=== PATIENT | female | born 1940 | race Caucasian/White ===

== ENCOUNTER 2020-10-12 18:30 | Inpatient (IN) | payer MEDICARE, OTHER ==
[~2020-10-12] VITALS: Ht 157.5 cm; Wt 66.9 kg
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
[2020-10-12 19:26] LABS: HEMATOCRIT 38.3 % (36.0-47.0); HEMOGLOBIN 12.8 g/dL (12.0-15.5); MEAN CORPUSCULAR HEMOGLOBIN 31 pg (25-35); MEAN CORPUSCULAR HGB CONC 33 g/dL (31-37); MEAN CORPUSCULAR VOLUME 94 fL (79-100); PLATELET COUNT 265 x10^3/uL (140-400); RED BLOOD COUNT 4.09 x10^6/uL (3.50-5.40); RED CELL DISTRIBUTION WIDTH 13.3 % (11.5-14.5); WHITE BLOOD COUNT 8.6 x10^3/uL (4.0-11.0)
[2020-10-12 19:26] LABS: BACTERIA,URINE 0 /HPF (0-FEW); BILIRUBIN,URINE NEG (NEG); CLARITY,URINE CLEAR; COLOR,URINE YELLOW; GLUCOSE,URINE NEG (NEG); NITRITE,URINE NEG (NEG); RBC,URINE 0 /HPF (0-2); UROBILINOGEN,URINE 0.2 mg/dL (0.2 mg/dL); WBC,URINE 0 /HPF (0-4)
--- NOTE | 2020-10-12 19:32 | EKG ---
[address] [address] Test Date: 2020-10-12 Test Time: 18:52:23 Pat Name: SANTOS TOBIN Department: Room: Gender: F Customer Support Engineer: DAVID : [id number] Requested By: LUIS LOCK Order Number: [id number] Reading MD: Measurements Intervals [place] Rate: 69 P: 40 [place]: 174 QRS: 43 QRSD: 84 T: 37 QT: 412 QTc: 443 Interpretive Statements SINUS RHYTHM NORMAL ECG RI6.02 No previous ECG available for comparison
[2020-10-12 19:36] LABS: CALCIUM 8.8 mg/dL (8.5-10.1); GFR 53.3; POTASSIUM 4.2 mmol/L (3.5-5.1)
[2020-10-12 19:42] LABS: ALBUMIN 3.7 g/dL (3.4-5.0); ALBUMIN/GLOBULIN RATIO 1.1 (1.0-1.7); TOTAL BILIRUBIN 0.3 mg/dL (0.2-1.0); TOTAL PROTEIN 7.1 g/dL (6.4-8.2)
[2020-10-12] MEDS ORDERED: MAG HYDROX/AL HYDROX/SIMETH 30 ML ORAL.SUSP PO PRN (20:00)
[2020-10-12] MEDS ORDERED: METHYL SALICYLATE/MENTHOL TOPICAL OINTMENT 57GM TUBE. TP PRN (20:00)
[2020-10-12] MEDS ORDERED: ACETAMINOPHEN 325 MG TABLET PO PRN (20:00)
[2020-10-12] MEDS ORDERED: MAGNESIUM HYDROXIDE 2,400 MG/30 ML ORAL.SUSP. PO PRN (20:00)
[2020-10-12] MEDS ORDERED: CHOL10004 PO (21:05)
[2020-10-12] MEDS ORDERED: LOSA50TA86 PO (21:05)
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
[2020-10-12 22:03] LABS: % BANDS 1 % (0-9); % EOS 3 % (0-5); % LYMPHS 29 % (24-48); % MONOS 6 % (0-10); % SEGS 61 % (35-66); PLT ESTIMATE ADEQUATE (ADEQUATE)
--- NOTE | 2020-10-12 22:10 | PDOC ---
Exam Note: Chucho Note: Please also refer to the separate dictated note~for this date of service dictated separately.~Patient seen individually. Discussed the patient with Nursing staff reviewed the chart.~Reviewed interim history and current functioning. Reviewed vital signs,~Labs/ Radiology~and current medications noted below. Continue current treatment with the changes noted in the dictated addendum note Assessment: Vital Signs/I&O: Vital Signs Date Time Temp Pulse Resp B/P (MAP) Pulse Ox O2 Delivery O2 Flow Rate FiO2 10/12/20 18:30 97.8 75 16 163/111 (128) 97 Room Air Labs: Laboratory Tests Test 10/12/20 18:40 10/12/20 19:13 Urine Collection Type Unknown Urine Color Yellow Urine Clarity Clear Urine pH 6.0 Urine Specific [place] 1.015 Urine Protein Neg (NEG-TRACE) Urine Glucose (UA) Neg mg/dL (NEG) Urine Ketones (Stick) Neg mg/dL (NEG) Urine Blood Trace (NEG) Urine Nitrite Neg (NEG) Urine Bilirubin Neg (NEG) Urine Urobilinogen Dipstick 0.2 mg/dL (0.2 mg/dL) Urine Leukocyte Esterase Neg (NEG) Urine RBC 0 /HPF (0-2) Urine WBC 0 /HPF (0-4) Urine Bacteria 0 /HPF (0-FEW) White Blood Count 8.6 x10^3/uL (4.0-11.0) Red Blood Count 4.09 x10^6/uL (3.50-5.40) Hemoglobin 12.8 g/dL (12.0-15.5) Hematocrit 38.3 % (36.0-47.0) Mean Corpuscular Volume 94 fL (79-100) Mean Corpuscular Hemoglobin 31 pg (25-35) Mean Corpuscular Hemoglobin Concent 33 g/dL (31-37) Red Cell Distribution Width 13.3 % (11.5-14.5) Platelet Count 265 x10^3/uL (140-400) Segmented Neutrophils % 61 % (35-66) Band Neutrophils % 1 % (0-9) Lymphocytes % 29 % (24-48) Monocytes % 6 % (0-10) Eosinophils % 3 % (0-5) Platelet Estimate Adequate (ADEQUATE) Sodium Level 138 mmol/L (136-145) Potassium Level 4.2 mmol/L (3.5-5.1) Chloride Level 101 mmol/L (98-107) Carbon Dioxide Level 29 mmol/L (21-32) Anion Gap 8 (6-14) Blood Urea Nitrogen 18 mg/dL (7-20) Creatinine 1.0 mg/dL (0.6-1.0) Estimated GFR (Cockcroft-Gault) 53.3 BUN/Creatinine Ratio 18 (6-20) Glucose Level 143 mg/dL (70-99) H Calcium Level 8.8 mg/dL (8.5-10.1) Magnesium Level 2.1 mg/dL (1.8-2.4) Total Bilirubin 0.3 mg/dL (0.2-1.0) Aspartate Amino Transferase (AST) 36 U/L (15-37) Alanine Aminotransferase (ALT) 55 U/L (14-59) Alkaline Phosphatase 89 U/L (46-116) Troponin I Quantitative < 0.017 ng/mL (0-0.055) Total Protein 7.1 g/dL (6.4-8.2) Albumin 3.7 g/dL (3.4-5.0) Albumin/Globulin Ratio 1.1 (1.0-1.7) Current Medications: Meds: Laboratory Tests Test 10/12/20 18:40 10/12/20 19:13 Urine Collection Type Unknown Urine Color Yellow Urine Clarity Clear Urine pH 6.0 Urine Specific [place] 1.015 Urine Protein Neg Urine Glucose (UA) Neg mg/dL Urine Ketones (Stick) Neg mg/dL Urine Blood Trace Urine Nitrite Neg Urine Bilirubin Neg Urine Urobilinogen Dipstick 0.2 mg/dL Urine Leukocyte Esterase Neg Urine RBC 0 /HPF Urine WBC 0 /HPF Urine Bacteria 0 /HPF White Blood Count 8.6 x10^3/uL Red Blood Count 4.09 x10^6/uL Hemoglobin 12.8 g/dL Hematocrit 38.3 % Mean Corpuscular Volume 94 fL Mean Corpuscular Hemoglobin 31 pg Mean Corpuscular Hemoglobin Concent 33 g/dL Red Cell Distribution Width 13.3 % Platelet Count 265 x10^3/uL Segmented Neutrophils % 61 % Band Neutrophils % 1 % Lymphocytes % 29 % Monocytes % 6 % Eosinophils % 3 % Platelet Estimate Adequate Sodium Level 138 mmol/L Potassium Level 4.2 mmol/L Chloride Level 101 mmol/L Carbon Dioxide Level 29 mmol/L Anion Gap 8 Blood Urea Nitrogen 18 mg/dL Creatinine 1.0 mg/dL Estimated GFR (Cockcroft-Gault) 53.3 BUN/Creatinine Ratio 18 Glucose Level 143 mg/dL Calcium Level 8.8 mg/dL Magnesium Level 2.1 mg/dL Total Bilirubin 0.3 mg/dL Aspartate Amino Transf (AST/SGOT) 36 U/L Alanine Aminotransferase (ALT/SGPT) 55 U/L Alkaline Phosphatase 89 U/L Troponin I Quantitative < 0.017 ng/mL Total Protein 7.1 g/dL Albumin 3.7 g/dL Albumin/Globulin Ratio 1.1 Current Medications Medications (Trade) Dose Ordered Sig/Wali Route PRN Reason Start Time Stop Time Status Last Admin Dose Admin Acetaminophen (Tylenol) 650 mg PRN Q6HRS PRN PO MILD PAIN / TEMP > 100.3'F 10/12/20 20:00 Multi-Ingredient Ointment (Analgesic Lillie) 1 cynthia PRN QID PRN TP MUSCLE PAIN 10/12/20 20:00 Al Hydroxide/Mg Hydroxide (Mylanta Plus Xs) 15 ml PRN AFTMEALHC PRN PO DYSPEPSIA 10/12/20 20:00 Magnesium Hydroxide (Milk Of Magnesia) 2,400 mg PRN QHS PRN PO CONSTIPATION 10/12/20 20:00 Vitamin D (Vitamin D3) 3,000 unit HS PO 10/13/20 21:15 Losartan Potassium (Cozaar) 50 mg HS PO 10/13/20 21:15 I have reviewed the current psychotropics carefully including drug interactions. Risk benefit ratio favors no change other than as noted in my dictated progress note. MICHELLE MG MD October 12, 2020 22:10
[2020-10-12 23:37] VITALS: BP 188/76
[2020-10-13 06:19] VITALS: BP 150/77
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
[2020-10-13 13:10] LABS: THYROXINE 6.1 ug/dL (4.5-12.0)
[2020-10-13 15:51] VITALS: BP 183/90
--- NOTE | 2020-10-13 17:25 | NUR ---
Pt did not have any medications to be given on day shift, she is pleasant and social no behaviors at this time. Patient cooperative when being asked to do something. 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 Patient has made two friends here which she knows from her facility; Maura and Nano and they are getting along well eating meals at the same table in the dining room and sitting in the day room together. Patient vitals wnl of baseline and stable, patient alert to self and others that she recognizes, will continue to monitor patient.
[2020-10-13 17:37] VITALS: BP 160/87
[2020-10-13] MEDS: CHOLECALCIFEROL (VITAMIN D3) 1,000 UNIT TABLET PO SCH (19:56)
[2020-10-13] MEDS: LOSARTAN 50 MG TABLET. PO SCH (19:56)
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
--- NOTE | 2020-10-13 22:00 | PDOC ---
Exam Note: Chucho Note: Please also refer to the separate dictated note~for this date of service dictated separately.~Patient seen individually. Discussed the patient with Nursing staff reviewed the chart.~Reviewed interim history and current functioning. Reviewed vital signs,~Labs/ Radiology~and current medications noted below. Continue current treatment with the changes noted in the dictated addendum note Assessment: Vital Signs/I&O: Vital Signs Date Time Temp Pulse Resp B/P (MAP) Pulse Ox O2 Delivery O2 Flow Rate FiO2 10/13/20 19:56 91 160/87 10/13/20 15:51 97.9 18 100 10/13/20 06:19 Room Air Labs: Laboratory Tests Test 10/13/20 09:50 D-Dimer (Kaylyn) 0.48 mg/L (0.00-0.50) Iron Level 86 ug/dL (50-170) Total Iron Binding Capacity 304 ug/dL (250-450) Iron Saturation 28 % (15-34) Current Medications: Meds: Laboratory Tests Test 10/13/20 09:50 D-Dimer (Kaylyn) 0.48 mg/L Iron Level 86 ug/dL Total Iron Binding Capacity 304 ug/dL Iron Saturation 28 % Current Medications Medications (Trade) Dose Ordered Sig/Wali Route PRN Reason Start Time Stop Time Status Last Admin Dose Admin Acetaminophen (Tylenol) 650 mg PRN Q6HRS PRN PO MILD PAIN / TEMP > 100.3'F 10/12/20 20:00 Multi-Ingredient Ointment (Analgesic [place]) 1 cynthia PRN QID PRN TP MUSCLE PAIN 10/12/20 20:00 Al Hydroxide/Mg Hydroxide (Mylanta Plus Xs) 15 ml PRN AFTMEALHC PRN PO DYSPEPSIA 10/12/20 20:00 Magnesium Hydroxide (Milk Of Magnesia) 2,400 mg PRN QHS PRN PO CONSTIPATION 10/12/20 20:00 Vitamin D (Vitamin D3) 3,000 unit HS PO 10/13/20 21:15 10/13/20 19:56 Losartan Potassium (Cozaar) 50 mg HS PO 10/13/20 21:15 10/13/20 19:56 Current Medications Medications (Trade) Dose Ordered Sig/Wali Route PRN Reason Start Time Stop Time Status Last Admin Dose Admin Vitamin D (Vitamin D3) 3,000 unit HS PO 10/13/20 21:15 10/13/20 19:56 Losartan Potassium (Cozaar) 50 mg HS PO 10/13/20 21:15 10/13/20 19:56 I have reviewed the current psychotropics carefully including drug interactions. Risk benefit ratio favors no change other than as noted in my dictated progress note. MICHELLE MG MD October 13, 2020 22:00
--- NOTE | 2020-10-13 22:36 | NUR ---
Pt sitting in the day room, socializing with peers when approached. Pt calm, pleasantly confused, and interactive. Pt cooperative with assessment and compliant with medications administered whole. No agitation or aggression noted thus far this shift.
[2020-10-13 23:09] LABS: HEMOGLOBIN A1C 5.3 % (4.8-5.6)
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
[2020-10-14 06:11] VITALS: BP 157/81
--- NOTE | 2020-10-14 10:22 | PDOC ---
Exam Note: Chucho Note: This note is a late entry for 10/13/2020 covers elements not covered in my initial note. Subjective: The patient was reviewed in the morning of 10/13/2020 for a treatment team meeting with Amada Chatterjee, Gwendolyn Gray and Ira (social media analyst), Landy, activity therapy and Chris MOTT, discussed and reviewed the chart. The patient slept 8 hours previous night. Patients daughter Shameka who lives in [place] attended the treatment team meeting. We had a lengthy discussion about the patients diagnosis and fact that she was always very social and the episode of aggression at the longterm seems out of character for her. 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 Rest information noted in my psychiatric evaluation/history. Assessment: Vital Signs/I&O: Vital Signs Date Time Temp Pulse Resp B/P (MAP) Pulse Ox O2 Delivery O2 Flow Rate FiO2 10/14/20 06:11 98.6 71 18 157/81 (106) 98 10/13/20 06:19 Room Air I & O 10/13/20 10/13/20 10/14/20 15:00 23:00 07:00 Intake Total 420 ml 600 ml Balance 420 ml 600 ml Current Medications: Meds: Current Medications Medications (Trade) Dose Ordered Sig/Wali Route PRN Reason Start Time Stop Time Status Last Admin Dose Admin Acetaminophen (Tylenol) 650 mg PRN Q6HRS PRN PO MILD PAIN / TEMP > 100.3'F 10/12/20 20:00 Multi-Ingredient Ointment (Analgesic [place]) 1 cynthia PRN QID PRN TP MUSCLE PAIN 10/12/20 20:00 Al Hydroxide/Mg Hydroxide (Mylanta Plus Xs) 15 ml PRN AFTMEALHC PRN PO DYSPEPSIA 10/12/20 20:00 Magnesium Hydroxide (Milk Of Magnesia) 2,400 mg PRN QHS PRN PO CONSTIPATION 10/12/20 20:00 Vitamin D (Vitamin D3) 3,000 unit HS PO 10/13/20 21:15 10/13/20 19:56 Losartan Potassium (Cozaar) 50 mg HS PO 10/13/20 21:15 10/13/20 19:56 Current Medications Medications (Trade) Dose Ordered Sig/Wali Route PRN Reason Start Time Stop Time Status Last Admin Dose Admin Vitamin D (Vitamin D3) 3,000 unit HS PO 10/13/20 21:15 10/13/20 19:56 Losartan Potassium (Cozaar) 50 mg HS PO 10/13/20 21:15 10/13/20 19:56 I have reviewed the current psychotropics carefully including drug interactions. Risk benefit ratio favors no change other than as noted in my dictated progress note. Diagnosis: Problems: (1) Major neurocognitive disorder (2) Dementia in Alzheimer's disease with delusions (3) Dementia in Alzheimer's disease with depression (4) Dementia of the Alzheimer's type with early onset with behavioral disturbance (5) Dementia, vascular, with delusions (6) Dementia, vascular, with depression (7) Anxiety disorder, unspecified (8) Impulse control disorder, unspecified MICHELLE MG MD October 14, 2020 10:22
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
--- NOTE | 2020-10-14 11:15 | NUR ---
ACTIVITY THERAPY ASSESSMENT completed based on notes, observation and interview. Pt can ambulate independently and interacts with with others. Pt was sitting in the day room chatting with peers. Pt was compliant and willing to answer questions. Pt was unable to answer assessment questions and often answered by reading the meal card she had in her hand from lunch. Pt was was able to say the month and day of her birthday but not the year. Pt believes her mother and father are still alive and that she only has one daughter. Pt has two daughters, one that lives about an hour away and another lives out of state. AT explained groups that are offered on [facility] and pt said "that's nice." Pt has attended a few Activity Therapy groups and engages well. Per notes pt has interacted well with others and is compliant with medications. Initial goal aimed to support socialization and engagement. Pt will participate in at all Activity Therapy sessions offered. Addendum: 10/20/20 at 1113 by MARY TRAN ACT Goal repeated 10/20
[2020-10-14 15:59] VITALS: BP 159/83
--- NOTE | 2020-10-14 16:03 | NUR ---
Nsg note; pt has been pleasantly confused today. she is calm and med compliant and stayed in the dayroom between meals talking with other pts.
[2020-10-14] MEDS: CHOLECALCIFEROL (VITAMIN D3) 1,000 UNIT TABLET PO SCH (20:27)
[2020-10-14] MEDS: LOSARTAN 50 MG TABLET. PO SCH (20:27)
--- NOTE | 2020-10-14 21:51 | PDOC ---
Exam Note: Chucho Note: Please also refer to the separate dictated note~for this date of service dictated separately.~Patient seen individually. Discussed the patient with Nursing staff reviewed the chart.~Reviewed interim history and current functioning. Reviewed vital signs,~Labs/ Radiology~and current medications noted below. Continue current treatment with the changes noted in the dictated addendum note Assessment: Vital Signs/I&O: Vital Signs Date Time Temp Pulse Resp B/P (MAP) Pulse Ox O2 Delivery O2 Flow Rate FiO2 10/14/20 20:27 76 159/83 10/14/20 15:59 98.2 20 99 Room Air I & O 10/13/20 10/13/20 10/14/20 15:00 23:00 07:00 Intake Total 420 ml 600 ml Balance 420 ml 600 ml Current Medications: Meds: Current Medications Medications (Trade) Dose Ordered Sig/Wali Route PRN Reason Start Time Stop Time Status Last Admin Dose Admin Acetaminophen (Tylenol) 650 mg PRN Q6HRS PRN PO MILD PAIN / TEMP > 100.3'F 10/12/20 20:00 Multi-Ingredient Ointment (Analgesic [place]) 1 cynthia PRN QID PRN TP MUSCLE PAIN 10/12/20 20:00 Al Hydroxide/Mg Hydroxide (Mylanta Plus Xs) 15 ml PRN AFTMEALHC PRN PO DYSPEPSIA 10/12/20 20:00 Magnesium Hydroxide (Milk Of Magnesia) 2,400 mg PRN QHS PRN PO CONSTIPATION 10/12/20 20:00 Vitamin D (Vitamin D3) 3,000 unit HS PO 10/13/20 21:15 10/14/20 20:27 Losartan Potassium (Cozaar) 50 mg HS PO 10/13/20 21:15 10/14/20 20:27 I have reviewed the current psychotropics carefully including drug interactions. Risk benefit ratio favors no change other than as noted in my dictated progress note. Diagnosis: Problems: (1) Impulse control disorder, unspecified (2) Anxiety disorder, unspecified (3) Dementia, vascular, with depression (4) Dementia, vascular, with delusions (5) Dementia in Alzheimer's disease with depression (6) Dementia in Alzheimer's disease with delusions (7) Dementia of the Alzheimer's type with early onset with behavioral disturbance (8) Major neurocognitive disorder MICHELLE MG MD October 14, 2020 21:51
--- NOTE | 2020-10-15 00:46 | NUR ---
Last evening pt sat in the day room watching TV and visiting with peers. She is pleasantly confused and was only able to give name and . Meds were taken whole and she has had no behaviors tonight.
[2020-10-15 06:10] VITALS: BP 154/80
[2020-10-15 15:49] VITALS: BP 153/94
--- NOTE | 2020-10-15 18:25 | NUR ---
Patient coopertive with cares and staff very social with other patients, disorganized and confused. Patient ambulates around the unit independently no complaints of pain or discomfort vitals wnl of baseline and stable. Patient has good appetite she eats all meals at the dining room table, no behaviors to report alert to self and others she recognizes, will continue to monitor patient.
[2020-10-15] MEDS: CHOLECALCIFEROL (VITAMIN D3) 1,000 UNIT TABLET PO SCH (20:16)
[2020-10-15] MEDS: LOSARTAN 50 MG TABLET. PO SCH (20:16)
--- NOTE | 2020-10-15 22:17 | PDOC ---
Exam Note: Chucho Note: Please also refer to the separate dictated note~for this date of service dictated separately.~Patient seen individually. Discussed the patient with Nursing staff reviewed the chart.~Reviewed interim history and current functioning. Reviewed vital signs,~Labs/ Radiology~and current medications noted below. Continue current treatment with the changes noted in the dictated addendum note Assessment: Vital Signs/I&O: Vital Signs Date Time Temp Pulse Resp B/P (MAP) Pulse Ox O2 Delivery O2 Flow Rate FiO2 10/15/20 20:16 92 153/94 10/15/20 15:49 98.2 18 97 10/15/20 06:10 Room Air I & O 10/14/20 10/14/20 10/15/20 15:00 23:00 07:00 Intake Total 480 ml 360 ml Balance 480 ml 360 ml Current Medications: Meds: Current Medications Medications (Trade) Dose Ordered Sig/Wali Route PRN Reason Start Time Stop Time Status Last Admin Dose Admin Acetaminophen (Tylenol) 650 mg PRN Q6HRS PRN PO MILD PAIN / TEMP > 100.3'F 10/12/20 20:00 Multi-Ingredient Ointment (Analgesic [place]) 1 cynthia PRN QID PRN TP MUSCLE PAIN 10/12/20 20:00 Al Hydroxide/Mg Hydroxide (Mylanta Plus Xs) 15 ml PRN AFTMEALHC PRN PO DYSPEPSIA 10/12/20 20:00 Magnesium Hydroxide (Milk Of Magnesia) 2,400 mg PRN QHS PRN PO CONSTIPATION 10/12/20 20:00 Vitamin D (Vitamin D3) 3,000 unit HS PO 10/13/20 21:15 10/15/20 20:16 Losartan Potassium (Cozaar) 50 mg HS PO 10/13/20 21:15 10/15/20 20:16 I have reviewed the current psychotropics carefully including drug interactions. Risk benefit ratio favors no change other than as noted in my dictated progress note. Diagnosis: Problems: (1) Impulse control disorder, unspecified (2) Anxiety disorder, unspecified (3) Dementia, vascular, with depression (4) Dementia, vascular, with delusions (5) Dementia in Alzheimer's disease with depression (6) Dementia in Alzheimer's disease with delusions (7) Dementia of the Alzheimer's type with early onset with behavioral disturbance (8) Major neurocognitive disorder MICHELLE MG MD October 15, 2020 22:17
[2020-10-16 05:33] VITALS: BP 164/84
--- NOTE | 2020-10-16 08:59 | PDOC ---
Exam Note: Chucho Note: This note is a late entry for 10/14/2020 covers elements not covered in my initial note. Subjective: The patient was seen individually in the evening of 10/14/2020 with Isabel MOTT, discussed and reviewed the chart. She slept 6-1/4 hours previous night. The patient remains kenneth, confused, but not aggressive, agitated, quite verbal, animated when I met with her but disorganized. Review of Systems: She is hard of hearing. No CV, , pulmonary, eye system symptoms on review. Reliability poor. Mental Status Exam: The patient is oriented to herself. Insight and judgment, recent and remote memory, attention and concentration fund of knowledge is poor consistent with her diagnoses. Laboratory Data: Reviewed. Impression: Major neurocognitive disorder Alzheimer vascular with delusion, depression, behavioral disturbance. Anxiety disorder unspecified. Impulse control disorder unspecified. Plan: Continue current psychotropics from initial note. Assessment: Vital Signs/I&O: Vital Signs Date Time Temp Pulse Resp B/P (MAP) Pulse Ox O2 Delivery O2 Flow Rate FiO2 10/16/20 05:33 98.0 82 16 164/84 (110) 98 10/15/20 06:10 Room Air I & O 10/15/20 10/15/20 10/16/20 15:00 23:00 07:00 Intake Total 540 ml 360 ml Balance 540 ml 360 ml Current Medications: Meds: Current Medications Medications (Trade) Dose Ordered Sig/Wali Route PRN Reason Start Time Stop Time Status Last Admin Dose Admin Acetaminophen (Tylenol) 650 mg PRN Q6HRS PRN PO MILD PAIN / TEMP > 100.3'F 10/12/20 20:00 Multi-Ingredient Ointment (Analgesic [place]) 1 cynthia PRN QID PRN TP MUSCLE PAIN 10/12/20 20:00 Al Hydroxide/Mg Hydroxide (Mylanta Plus Xs) 15 ml PRN AFTMEALHC PRN PO DYSPEPSIA 10/12/20 20:00 Magnesium Hydroxide (Milk Of Magnesia) 2,400 mg PRN QHS PRN PO CONSTIPATION 10/12/20 20:00 Vitamin D (Vitamin D3) 3,000 unit HS PO 10/13/20 21:15 10/15/20 20:16 Losartan Potassium (Cozaar) 50 mg HS PO 10/13/20 21:15 10/15/20 20:16 I have reviewed the current psychotropics carefully including drug interactions. Risk benefit ratio favors no change other than as noted in my dictated progress note. Diagnosis: Problems: (1) Impulse control disorder, unspecified (2) Anxiety disorder, unspecified (3) Dementia, vascular, with depression (4) Dementia, vascular, with delusions (5) Dementia in Alzheimer's disease with depression (6) Dementia in Alzheimer's disease with delusions (7) Dementia of the Alzheimer's type with early onset with behavioral disturbance (8) Major neurocognitive disorder MICHELLE MG MD October 16, 2020 08:59
--- NOTE | 2020-10-16 09:21 | PDOC ---
Exam Note: Chucho Note: This note is a late entry for covers elements not covered in my initial note. Subjective: The patient was seen individually in the evening of 10/15/2020 with Chris MOTT, discussed and reviewed the chart. She slept 6-1/4 hours previous night. She is oriented to herself, pleasant, verbal, following me around the hallways as I met with her. Review of Systems: She is hard of hearing. No CV, , pulmonary, eye system symptoms on review. Reliability poor. Mental Status Exam: The patient is oriented to herself. Insight and judgment, recent and remote memory, attention and concentration fund of knowledge is poor consistent with her diagnoses. Laboratory Data: Reviewed. Impression: Major neurocognitive disorder Alzheimer vascular with delusion, depression, behavioral disturbance. Anxiety disorder unspecified. Impulse control disorder unspecified. Plan: Continue current psychotropics from initial note. Assessment: Vital Signs/I&O: Vital Signs Date Time Temp Pulse Resp B/P (MAP) Pulse Ox O2 Delivery O2 Flow Rate FiO2 10/16/20 05:33 98.0 82 16 164/84 (110) 98 10/15/20 06:10 Room Air I & O 10/15/20 10/15/20 10/16/20 15:00 23:00 07:00 Intake Total 540 ml 360 ml Balance 540 ml 360 ml Current Medications: Meds: Current Medications Medications (Trade) Dose Ordered Sig/Wali Route PRN Reason Start Time Stop Time Status Last Admin Dose Admin Acetaminophen (Tylenol) 650 mg PRN Q6HRS PRN PO MILD PAIN / TEMP > 100.3'F 10/12/20 20:00 Multi-Ingredient Ointment (Analgesic [place]) 1 cynthia PRN QID PRN TP MUSCLE PAIN 10/12/20 20:00 Al Hydroxide/Mg Hydroxide (Mylanta Plus Xs) 15 ml PRN AFTMEALHC PRN PO DYSPEPSIA 10/12/20 20:00 Magnesium Hydroxide (Milk Of Magnesia) 2,400 mg PRN QHS PRN PO CONSTIPATION 10/12/20 20:00 Vitamin D (Vitamin D3) 3,000 unit HS PO 10/13/20 21:15 10/15/20 20:16 Losartan Potassium (Cozaar) 50 mg HS PO 10/13/20 21:15 10/15/20 20:16 I have reviewed the current psychotropics carefully including drug interactions. Risk benefit ratio favors no change other than as noted in my dictated progress note. Diagnosis: Problems: (1) Impulse control disorder, unspecified (2) Anxiety disorder, unspecified (3) Dementia, vascular, with depression (4) Dementia, vascular, with delusions (5) Dementia in Alzheimer's disease with depression (6) Dementia in Alzheimer's disease with delusions (7) Dementia of the Alzheimer's type with early onset with behavioral disturbanc e (8) Major neurocognitive disorder MICHELLE MG MD October 16, 2020 09:21
[2020-10-16 15:43] VITALS: BP 139/84
--- NOTE | 2020-10-16 16:52 | NUR ---
Pt had no behaviors today very pleasant compliant with cares and cooperative with staff. Patient has good appetite in the dining room for all meals sitting at the table with prior friends from her facility. Patient alert to self ambulates ad emir independently. Patient daughter called for an update password was given and update provided. Patient daughter stated she loves music and she loves to dance. Very disorganized and confused. No complaints of pain or discomfort. Will continue to monitor patient.
[2020-10-16] MEDS: CHOLECALCIFEROL (VITAMIN D3) 1,000 UNIT TABLET PO SCH (20:08)
[2020-10-16] MEDS: LOSARTAN 50 MG TABLET. PO SCH (20:09)
--- NOTE | 2020-10-16 22:13 | PDOC ---
Exam Note: Chucho Note: Please also refer to the separate dictated note~for this date of service dictated separately.~Patient seen individually. Discussed the patient with Nursing staff reviewed the chart.~Reviewed interim history and current functioning. Reviewed vital signs,~Labs/ Radiology~and current medications noted below. Continue current treatment with the changes noted in the dictated addendum note Assessment: Vital Signs/I&O: Vital Signs Date Time Temp Pulse Resp B/P (MAP) Pulse Ox O2 Delivery O2 Flow Rate FiO2 10/16/20 20:09 85 139/84 10/16/20 15:43 98.0 18 97 10/15/20 06:10 Room Air I & O 10/15/20 10/15/20 10/16/20 15:00 23:00 07:00 Intake Total 540 ml 360 ml Balance 540 ml 360 ml Current Medications: Meds: Current Medications Medications (Trade) Dose Ordered Sig/Wali Route PRN Reason Start Time Stop Time Status Last Admin Dose Admin Acetaminophen (Tylenol) 650 mg PRN Q6HRS PRN PO MILD PAIN / TEMP > 100.3'F 10/12/20 20:00 Multi-Ingredient Ointment (Analgesic [place]) 1 cynthia PRN QID PRN TP MUSCLE PAIN 10/12/20 20:00 Al Hydroxide/Mg Hydroxide (Mylanta Plus Xs) 15 ml PRN AFTMEALHC PRN PO DYSPEPSIA 10/12/20 20:00 Magnesium Hydroxide (Milk Of Magnesia) 2,400 mg PRN QHS PRN PO CONSTIPATION 10/12/20 20:00 Vitamin D (Vitamin D3) 3,000 unit HS PO 10/13/20 21:15 10/16/20 20:08 Losartan Potassium (Cozaar) 50 mg HS PO 10/13/20 21:15 10/16/20 20:09 I have reviewed the current psychotropics carefully including drug interactions. Risk benefit ratio favors no change other than as noted in my dictated progress note. Diagnosis: Problems: (1) Impulse control disorder, unspecified (2) Anxiety disorder, unspecified (3) Dementia, vascular, with depression (4) Dementia, vascular, with delusions (5) Dementia in Alzheimer's disease with depression (6) Dementia in Alzheimer's disease with delusions (7) Dementia of the Alzheimer's type with early onset with behavioral disturbance (8) Major neurocognitive disorder MICHELLE MG MD October 16, 2020 22:13
[2020-10-17 06:24] VITALS: BP 159/81
--- NOTE | 2020-10-17 07:14 | PDOC ---
Exam Note: Chucho Note: This note is a late entry for covers elements not covered in my initial note. Subjective: The patient was seen individually in the evening of 10/16/2020 with Chris MOTT, discussed and reviewed the chart. She slept 6-1/2 hours previous night. She remains confused. Review of Systems: No CV, , pulmonary, eye system symptoms on review. Mental Status Exam: The patient is oriented to herself. Insight and judgment, recent and remote memory, attention and concentration fund of knowledge is poor consistent with her diagnoses. Laboratory Data: Reviewed. Impression: Major neurocognitive disorder Alzheimer vascular with delusion, depression, behavioral disturbance. Anxiety disorder unspecified. Impulse control disorder unspecified. Plan: Continue current psychotropics from initial note. The patients family prefers no psychotropics. At this stage will not find a need to use any psychotropic medication. We will continue to assess if this is needed. Assessment: Vital Signs/I&O: Vital Signs Date Time Temp Pulse Resp B/P (MAP) Pulse Ox O2 Delivery O2 Flow Rate FiO2 10/17/20 06:24 97.7 84 16 159/81 (107) 98 10/15/20 06:10 Room Air I & O 10/16/20 10/16/20 10/17/20 15:00 23:00 07:00 Intake Total 600 ml 480 ml Balance 600 ml 480 ml Current Medications: Meds: Current Medications Medications (Trade) Dose Ordered Sig/Wali Route PRN Reason Start Time Stop Time Status Last Admin Dose Admin Acetaminophen (Tylenol) 650 mg PRN Q6HRS PRN PO MILD PAIN / TEMP > 100.3'F 10/12/20 20:00 Multi-Ingredient Ointment (Analgesic [place]) 1 cynthia PRN QID PRN TP MUSCLE PAIN 10/12/20 20:00 Al Hydroxide/Mg Hydroxide (Mylanta Plus Xs) 15 ml PRN AFTMEALHC PRN PO DYSPEPSIA 10/12/20 20:00 Magnesium Hydroxide (Milk Of Magnesia) 2,400 mg PRN QHS PRN PO CONSTIPATION 10/12/20 20:00 Vitamin D (Vitamin D3) 3,000 unit HS PO 10/13/20 21:15 10/16/20 20:08 Losartan Potassium (Cozaar) 50 mg HS PO 10/13/20 21:15 10/16/20 20:09 I have reviewed the current psychotropics carefully including drug interactions. Risk benefit ratio favors no change other than as noted in my dictated progress note. Diagnosis: Problems: (1) Impulse control disorder, unspecified (2) Anxiety disorder, unspecified (3) Dementia, vascular, with depression (4) Dementia, vascular, with delusions (5) Dementia in Alzheimer's disease with depression (6) Dementia in Alzheimer's disease with delusions (7) Dementia of the Alzheimer's type with early onset with behavioral disturbance (8) Major neurocognitive disorder MICHELLE MG MD October 17, 2020 07:13
[2020-10-17 16:06] VITALS: BP 158/90
--- NOTE | 2020-10-17 16:16 | NUR ---
NSG NOTE; AFTER KISSING A MALE PEER ON THE FOREHEAD, THE PT TOOK HIS HAND AND ATTEMPTED TO LEAD HIM OUT OF THE DAYROOM. WHEN STAFF INTERVENED, PT BECAME VERY ANGRY, STATING THAT "HE IS MY MAN AND I CAN TAKE HIM OUT OF HERE IF I WANT TO." SHE TOLD SEVERAL STAFF MEMBERS TO "FUCK OFF" AND THAT SHE CAN DO WHAT SHE WANTS WITH HER MAN. WE WERE FINALLY ABLE TO GET HER TO LET GO OF HIS HAND AND GO SIT WITH SOME OTHER FEMALE PEERS AFTER WHICH SHE TOLD US "TO GO TO HELL." SHE CONTINUED TO BE ANGRY AND GLARED AT STAFF FROM ACROSS THE DAYROOM ALL THE WHILE COMPLAINING TO HER FEMALE PEERS THAT "THOSE THREE BITCHES" WERE TRYING TO STEAL HER MAN.
--- NOTE | 2020-10-17 17:40 | NUR ---
NSG NOTE; SANTOS CONT TO BE ANGRY WITH STAFF, GLARING AT US FROM ACROSS THE DINING ROOM. SHE HAS NOT APPROACHED THE MALE PT AGAIN
--- NOTE | 2020-10-17 18:45 | NUR ---
NSG NOTE; PHONE CONTACT WITH DAUGHTER KIERSTEN CAN ROSA AT [address] MG'S REQUEST. KIERSTEN INFORMED OF 'S REQUEST TO START ZOLOFT AND EDUCATED ABOUT POSSIBLE SIDE EFFECTS. SHE AGREED TO ALLOW THE PATIENT TO BE STARTED ON THIS MED
[2020-10-17] MEDS: LOSARTAN 50 MG TABLET. PO SCH (20:21)
[2020-10-17] MEDS: CHOLECALCIFEROL (VITAMIN D3) 1,000 UNIT TABLET PO SCH (20:21)
--- NOTE | 2020-10-17 22:15 | PDOC ---
Exam Note: Chucho Note: Please also refer to the separate dictated note~for this date of service dictated separately.~Patient seen individually. Discussed the patient with Nursing staff reviewed the chart.~Reviewed interim history and current functioning. Reviewed vital signs,~Labs/ Radiology~and current medications noted below. Continue current treatment with the changes noted in the dictated addendum note Assessment: Vital Signs/I&O: Vital Signs Date Time Temp Pulse Resp B/P (MAP) Pulse Ox O2 Delivery O2 Flow Rate FiO2 10/17/20 20: 80 158/90 10/17/20 16:06 97.6 20 97 10/15/20 06:10 Room Air I & O 10/16/20 10/16/20 10/17/20 15:00 23:00 07:00 Intake Total 600 ml 480 ml Balance 600 ml 480 ml Current Medications: Meds: Current Medications Medications (Trade) Dose Ordered Sig/Wali Route PRN Reason Start Time Stop Time Status Last Admin Dose Admin Acetaminophen (Tylenol) 650 mg PRN Q6HRS PRN PO MILD PAIN / TEMP > 100.3'F 10/12/20 20:00 Multi-Ingredient Ointment (Analgesic [place]) 1 cynthia PRN QID PRN TP MUSCLE PAIN 10/12/20 20:00 Al Hydroxide/Mg Hydroxide (Mylanta Plus Xs) 15 ml PRN AFTMEALHC PRN PO DYSPEPSIA 10/12/20 20:00 Magnesium Hydroxide (Milk Of Magnesia) 2,400 mg PRN QHS PRN PO CONSTIPATION 10/12/20 20:00 Vitamin D (Vitamin D3) 3,000 unit HS PO 10/13/20 21:15 10/17/20 20:21 Losartan Potassium (Cozaar) 50 mg HS PO 10/13/20 21:15 10/17/20 20:21 Sertraline HCl (Zoloft) 25 mg DAILY PO 10/18/20 09:00 10/21/20 08:59 Sertraline HCl (Zoloft) 50 mg DAILY PO 10/21/20 09:00 I have reviewed the current psychotropics carefully including drug interactions. Risk benefit ratio favors no change other than as noted in my dictated progress note. Diagnosis: Problems: (1) Impulse control disorder, unspecified (2) Anxiety disorder, unspecified (3) Dementia, vascular, with depression (4) Dementia, vascular, with delusions (5) Dementia in Alzheimer's disease with depression (6) Dementia in Alzheimer's disease with delusions (7) Dementia of the Alzheimer's type with early onset with behavioral disturb ance (8) Major neurocognitive disorder MICHELLE MG MD October 17, 2020 22:15
--- NOTE | 2020-10-17 23:41 | NUR ---
Pt walking in hallway when approached. Pt calm, confused, disorganized, and delusional. Pt following male peer down the hallway, she believes that he is her s/o. Pt somewhat resistive with staff attempts to re-direct. Pt cooperative with assessment and compliant with medications administered whole.
[2020-10-18 06:16] VITALS: BP 140/82
[2020-10-18] MEDS: SERTRALINE 25 MG TABLET. PO SCH (08:33)
[2020-10-18] MEDS ORDERED: LOSARTAN 50 MG TABLET. PO ONE (15:30)
[2020-10-18 15:56] VITALS: BP 191/74
--- NOTE | 2020-10-18 17:49 | NUR ---
NSG NOTE; SHIFT SUMMARY Sunita has been less persistent with her males peers today, preferring talking and playing cards with female peers. she is confused but can follow simple directions. she has been med compliant and calm. she is social with peers, talking and laughing at times.
[2020-10-18] MEDS: CHOLECALCIFEROL (VITAMIN D3) 1,000 UNIT TABLET PO SCH (20:45)
[2020-10-18] MEDS: LOSARTAN 50 MG TABLET. PO SCH (20:45)
--- NOTE | 2020-10-18 21:55 | PDOC ---
Exam Note: Chucho Note: Please also refer to the separate dictated note~for this date of service dictated separately.~Patient seen individually. Discussed the patient with Nursing staff reviewed the chart.~Reviewed interim history and current functioning. Reviewed vital signs,~Labs/ Radiology~and current medications noted below. Continue current treatment with the changes noted in the dictated addendum note Assessment: Vital Signs/I&O: Vital Signs Date Time Temp Pulse Resp B/P (MAP) Pulse Ox O2 Delivery O2 Flow Rate FiO2 10/18/20 20:45 75 191/74 10/18/20 15:56 98.1 20 93 10/15/20 06:10 Room Air I & O 10/17/20 10/17/20 10/18/20 15:00 23:00 07:00 Intake Total 480 ml 360 ml Balance 480 ml 360 ml Current Medications: Meds: Current Medications Medications (Trade) Dose Ordered Sig/Wali Route PRN Reason Start Time Stop Time Status Last Admin Dose Admin Acetaminophen (Tylenol) 650 mg PRN Q6HRS PRN PO MILD PAIN / TEMP > 100.3'F 10/12/20 20:00 Multi-Ingredient Ointment (Analgesic [place]) 1 cynthia PRN QID PRN TP MUSCLE PAIN 10/12/20 20:00 Al Hydroxide/Mg Hydroxide (Mylanta Plus Xs) 15 ml PRN AFTMEALHC PRN PO DYSPEPSIA 10/12/20 20:00 Magnesium Hydroxide (Milk Of Magnesia) 2,400 mg PRN QHS PRN PO CONSTIPATION 10/12/20 20:00 Vitamin D (Vitamin D3) 3,000 unit HS PO 10/13/20 21:15 10/18/20 20:45 Losartan Potassium (Cozaar) 50 mg HS PO 10/13/20 21:15 10/18/20 20:45 Sertraline HCl (Zoloft) 25 mg DAILY PO 10/18/20 09:00 10/21/20 08:59 10/18/20 08:33 Sertraline HCl (Zoloft) 50 mg DAILY PO 10/21/20 09:00 Losartan Potassium (Cozaar) 50 mg 1X ONCE PO 10/18/20 15:30 10/18/20 15:31 DC 10/18/20 15:20 Current Medications Medications (Trade) Dose Ordered Sig/Wali Route PRN Reason Start Time Stop Time Status Last Admin Dose Admin Sertraline HCl (Zoloft) 25 mg DAILY PO 10/18/20 09:00 10/21/20 08:59 10/18/20 08:33 Losartan Potassium (Cozaar) 50 mg 1X ONCE PO 10/18/20 15:30 10/18/20 15:31 DC 10/18/20 15:20 I have reviewed the current psychotropics carefully including drug interactions. Risk benefit ratio favors no change other than as noted in my dictated progress note. Diagnosis: Problems: (1) Impulse control disorder, unspecified (2) Anxiety disorder, unspecified (3) Dementia, vascular, with depression (4) Dementia, vascular, with delusions (5) Dementia in Alzheimer's disease with depression (6) Dementia in Alzheimer's disease with delusions (7) Dementia of the Alzheimer's type with early onset with behavioral disturbance (8) Major neurocognitive disorder MICHELLE MG MD Oct 18, 2020 21:55
--- NOTE | 2020-10-19 00:43 | NUR ---
Pt sitting in day room watching television and interacting with peers when approached. Pt calm, pleasantly confused, and social. Pt cooperative with assessment and compliant with medications administered whole.
[2020-10-19 06:10] VITALS: BP 169/82
--- NOTE | 2020-10-19 06:53 | PDOC ---
Exam Note: Chucho Note: This note is a late entry for 10/17/2020 covers elements not covered in my initial note. Subjective: The patient was seen individually in the evening of 10/17/2020 with Isabel MOTT, discussed and reviewed the chart. She slept 7 hours previous night. She has been somewhat flirting with another demented patient. Daughter prefers for her not to take any medications but the patient remains somewhat obsessive, anxious, worsens her behaviors, telling the staff to go to [facility]. At one point, staff attempted to separate her from the male demented patient and she made statements and she would knock the nursing staffs head off and was calling the staff members sergio stating dont interfere with my man, quite oblivious of this but did not remember any of it as I met with her in the evening. Review of Systems: No CV, , pulmonary, eye system symptoms on review. Mental Status Exam: The patient is oriented to herself. Insight and judgment, recent and remote memory, attention and concentration fund of knowledge is poor consistent with her diagnoses. Laboratory Data: Reviewed. Impression: Major neurocognitive disorder Alzheimer vascular with delusion, depression, behavioral disturbance. Anxiety disorder unspecified. Impulse control disorder unspecified. Plan: Continue current psychotropics from initial note. Start Zoloft 25 mg a day. Increase in 3 days to 50 mg a day, if the daughter is agreeable Assessment: Vital Signs/I&O: Vital Signs Date Time Temp Pulse Resp B/P (MAP) Pulse Ox O2 Delivery O2 Flow Rate FiO2 10/19/20 06:10 97.8 72 18 169/82 (111) 96 Room Air I & O 10/18/20 10/18/20 10/19/20 15:00 23:00 07:00 Intake Total 840 ml 360 ml 120 ml Balance 840 ml 360 ml 120 ml Current Medications: Meds: Current Medications Medications (Trade) Dose Ordered Sig/Wali Route PRN Reason Start Time Stop Time Status Last Admin Dose Admin Acetaminophen (Tylenol) 650 mg PRN Q6HRS PRN PO MILD PAIN / TEMP > 100.3'F 10/12/20 20:00 Multi-Ingredient Ointment (Analgesic [place]) 1 cynthia PRN QID PRN TP MUSCLE PAIN 10/12/20 20:00 Al Hydroxide/Mg Hydroxide (Mylanta Plus Xs) 15 ml PRN AFTMEALHC PRN PO DYSPEPSIA 10/12/20 20:00 Magnesium Hydroxide (Milk Of Magnesia) 2,400 mg PRN QHS PRN PO CONSTIPATION 10/12/20 20:00 Vitamin D (Vitamin D3) 3,000 unit HS PO 10/13/20 21:15 10/18/20 20:45 Losartan Potassium (Cozaar) 50 mg HS PO 10/13/20 21:15 10/18/20 20:45 Sertraline HCl (Zoloft) 25 mg DAILY PO 10/18/20 09:00 10/21/20 08:59 10/18/20 08:33 Sertraline HCl (Zoloft) 50 mg DAILY PO 10/21/20 09:00 Losartan Potassium (Cozaar) 50 mg 1X ONCE PO 10/18/20 15:30 10/18/20 15:31 DC 10/18/20 15:20 Current Medications Medications (Trade) Dose Ordered Sig/Wali Route PRN Reason Start Time Stop Time Status Last Admin Dose Admin Sertraline HCl (Zoloft) 25 mg DAILY PO 10/18/20 09:00 10/21/20 08:59 10/18/20 08:33 Losartan Potassium (Cozaar) 50 mg 1X ONCE PO 10/18/20 15:30 10/18/20 15:31 DC 10/18/20 15:20 I have reviewed the current psychotropics carefully including drug interactions. Risk benefit ratio favors no change other than as noted in my dictated progress note. Diagnosis: Problems: (1) Impulse control disorder, unspecified (2) Anxiety disorder, unspecified (3) Dementia, vascular, with depression (4) Dementia, vascular, with delusions (5) Dementia in Alzheimer's disease with depression (6) Dementia in Alzheimer's disease with delusions (7) Dementia of the Alzheimer's type with early onset with behavioral disturbance (8) Major neurocognitive disorder MICHELLE MG MD Oct 19, 2020 06:53
--- NOTE | 2020-10-19 07:29 | PDOC ---
Exam Note: Chucho Note: This note is a late entry for covers elements not covered in my initial note. Subjective: The patient was seen individually in the evening of 10/18/2020 with Isabel MOTT, discussed and reviewed the chart. She slept 7 hours previous night. Overall the patient remains confused, but redirectable. She has not been sticking to one of the other demented male patients and spending more time with the other demented patient from her alf. Review of Systems: No CV, , pulmonary, eye system symptoms on review. Mental Status Exam: The patient is oriented to herself. Insight and judgment, recent and remote memory, attention and concentration fund of knowledge is poor consistent with her diagnoses. Laboratory Data: Reviewed. Impression: Major neurocognitive disorder Alzheimer vascular with delusion, depression, behavioral disturbance. Anxiety disorder unspecified. Impulse control disorder unspecified. Plan: Continue current psychotropics from initial note. Start Zoloft 25 mg a day increasing to 50 mg a day if approved by the daughter. This should help some of her mood and anxiety symptoms and obsessiveness, which worsens some of the behavioral presentation. Assessment: Vital Signs/I&O: Vital Signs Date Time Temp Pulse Resp B/P (MAP) Pulse Ox O2 Delivery O2 Flow Rate FiO2 10/19/20 06:10 97.8 72 18 169/82 (111) 96 Room Air I & O 10/18/20 10/18/20 10/19/20 15:00 23:00 07:00 Intake Total 840 ml 360 ml 120 ml Balance 840 ml 360 ml 120 ml Current Medications: Meds: Current Medications Medications (Trade) Dose Ordered Sig/Wali Route PRN Reason Start Time Stop Time Status Last Admin Dose Admin Acetaminophen (Tylenol) 650 mg PRN Q6HRS PRN PO MILD PAIN / TEMP > 100.3'F 10/12/20 20:00 Multi-Ingredient Ointment (Analgesic [place]) 1 cynthia PRN QID PRN TP MUSCLE PAIN 10/12/20 20:00 Al Hydroxide/Mg Hydroxide (Mylanta Plus Xs) 15 ml PRN AFTMEALHC PRN PO DYSPEPSIA 10/12/20 20:00 Magnesium Hydroxide (Milk Of Magnesia) 2,400 mg PRN QHS PRN PO CONSTIPATION 10/12/20 20:00 Vitamin D (Vitamin D3) 3,000 unit HS PO 10/13/20 21:15 10/18/20 20:45 Losartan Potassium (Cozaar) 50 mg HS PO 10/13/20 21:15 10/18/20 20:45 Sertraline HCl (Zoloft) 25 mg DAILY PO 10/18/20 09:00 10/21/20 08:59 10/18/20 08:33 Sertraline HCl (Zoloft) 50 mg DAILY PO 10/21/20 09:00 Losartan Potassium (Cozaar) 50 mg 1X ONCE PO 10/18/20 15:30 10/18/20 15:31 DC 10/18/20 15:20 Current Medications Medications (Trade) Dose Ordered Sig/Wali Route PRN Reason Start Time Stop Time Status Last Admin Dose Admin Sertraline HCl (Zoloft) 25 mg DAILY PO 10/18/20 09:00 10/21/20 08:59 10/18/20 08:33 Losartan Potassium (Cozaar) 50 mg 1X ONCE PO 10/18/20 15:30 10/18/20 15:31 DC 10/18/20 15:20 I have reviewed the current psychotropics carefully including drug interactions. Risk benefit ratio favors no change other than as noted in my dictated progress note. Diagnosis: Problems: (1) Impulse control disorder, unspecified (2) Anxiety disorder, unspecified (3) Dementia, vascular, with depression (4) Dementia, vascular, with delusions (5) Dementia in Alzheimer's disease with depression (6) Dementia in Alzheimer's disease with delusions (7) Dementia of the Alzheimer's type with early onset with behavioral disturbance (8) Major neurocognitive disorder MICHELLE MG MD Oct 19, 2020 07:29
[2020-10-19 07:40] LABS: BASO # 0.1 x10^3/uL (0.0-0.2); BASO % 1 % (0-3); EOS # 0.2 x10^3/uL (0.0-0.7); EOS % 3 % (0-3); HEMOGLOBIN 12.3 g/dL (12.0-15.5); LYMPH # 2.2 x10^3/uL (1.0-4.8); LYMPH % 29 % (24-48); MEAN CORPUSCULAR HEMOGLOBIN 31 pg (25-35); MEAN CORPUSCULAR HGB CONC 33 g/dL (31-37); MEAN CORPUSCULAR VOLUME 94 fL (79-100); MONO # 0.7 x10^3/uL (0.0-1.1); MONO % 10 % (0-9); NEUT # 4.4 x10^3uL (1.8-7.7); NEUT % 58 % (31-73); PLATELET COUNT 268 x10^3/uL (140-400); RED BLOOD COUNT 3.95 x10^6/uL (3.50-5.40); RED CELL DISTRIBUTION WIDTH 13.2 % (11.5-14.5); WHITE BLOOD COUNT 7.6 x10^3/uL (4.0-11.0)
[2020-10-19 08:01] LABS: ALBUMIN/GLOBULIN RATIO 0.9 (1.0-1.7); CALCIUM 8.6 mg/dL (8.5-10.1); GFR 53.3; POTASSIUM 4.1 mmol/L (3.5-5.1); TOTAL BILIRUBIN 0.5 mg/dL (0.2-1.0); TOTAL PROTEIN 6.5 g/dL (6.4-8.2)
[2020-10-19] MEDS: SERTRALINE 25 MG TABLET. PO SCH (09:06)
--- NOTE | 2020-10-19 10:30 | NUR ---
DESIRAE faxed updates to facility then followed up with a phone call to Rosalia. Left voice message for Rosalia to return call. DESIRAE then contacted pt Dtr/DPOA, Shameka, to provide update. Shameka confirmed that she spoke with nursing staff over the weekend to approve pt being started on Zoloft. DESIRAE and Shameka reviewed pt behavior of latching onto a male peer thinking that he was her s/o and then getting upset when redirected. Shameka stated that she should have mentioned that pt mostly thinks she is way younger than she is and will sometimes act like she is still dating "boys". Shameka appreciative of call and continues to be available if needed.
[2020-10-19 15:33] VITALS: BP 177/97
[2020-10-19] MEDS ORDERED: LOSARTAN 50 MG TABLET. PO SCH (18:00)
--- NOTE | 2020-10-19 18:05 | NUR ---
Patient very disorganized alert to self and others from her prior facility, patient has now developed a liking to certain male patients on the unit thinking they are dating or . Patient is redirected to sit in another area and separate from the male patients she is attaching herself to and she is cooperative when approached nicely. Patient has confusion as well med compliant. Called patient Daughter Shameka to inform her of the med change zoloft from 25mg to 50mg starting 10/21 which she was ok with I advised the dose will increase to meet the desired therapeutic mg of 50 we just needed to evaluate how well she is handling the 25mg and is handling the medication well without any adverse reactions. Patient seen by Dr Fairchild who was made aware of her increasing blood pressure and only has losartan ordered QHS 50mg new orders for losartan 100mg contacted patient Daughter to advise of increase of losartan she was ok with change. Patient vitals stable wnl of her baseline which her blood pressure is elevated at baseline, no complaints of pain or discomfort to report, patient pleasant no behaviors to report cooperative with staff and social with others on the unit. Will continue to monitor patient.
[2020-10-19] MEDS: LOSARTAN 50 MG TABLET. PO SCH (20:45)
[2020-10-19] MEDS: CHOLECALCIFEROL (VITAMIN D3) 1,000 UNIT TABLET PO SCH (20:45)
--- NOTE | 2020-10-19 22:04 | PDOC ---
Exam Note: Chucho Note: Please also refer to the separate dictated note~for this date of service dictated separately.~Patient seen individually. Discussed the patient with Nursing staff reviewed the chart.~Reviewed interim history and current functioning. Reviewed vital signs,~Labs/ Radiology~and current medications noted below. Continue current treatment with the changes noted in the dictated addendum note Assessment: Vital Signs/I&O: Vital Signs Date Time Temp Pulse Resp B/P (MAP) Pulse Ox O2 Delivery O2 Flow Rate FiO2 10/19/20 20:45 85 177/97 10/19/20 15:33 97.4 16 97 10/19/20 06:10 Room Air I & O 10/18/20 10/18/20 10/19/20 15:00 23:00 07:00 Intake Total 840 ml 360 ml 120 ml Balance 840 ml 360 ml 120 ml Labs: Laboratory Tests Test 10/19/20 06:19 White Blood Count 7.6 x10^3/uL (4.0-11.0) Red Blood Count 3.95 x10^6/uL (3.50-5.40) Hemoglobin 12.3 g/dL (12.0-15.5) Hematocrit 37.0 % (36.0-47.0) Mean Corpuscular Volume 94 fL (79-100) Mean Corpuscular Hemoglobin 31 pg (25-35) Mean Corpuscular Hemoglobin Concent 33 g/dL (31-37) Red Cell Distribution Width 13.2 % (11.5-14.5) Platelet Count 268 x10^3/uL (140-400) Neutrophils (%) (Auto) 58 % (31-73) Lymphocytes (%) (Auto) 29 % (24-48) Monocytes (%) (Auto) 10 % (0-9) H Eosinophils (%) (Auto) 3 % (0-3) Basophils (%) (Auto) 1 % (0-3) Neutrophils # (Auto) 4.4 x10^3uL (1.8-7.7) Lymphocytes # (Auto) 2.2 x10^3/uL (1.0-4.8) Monocytes # (Auto) 0.7 x10^3/uL (0.0-1.1) Eosinophils # (Auto) 0.2 x10^3/uL (0.0-0.7) Basophils # (Auto) 0.1 x10^3/uL (0.0-0.2) Sodium Level 143 mmol/L (136-145) Potassium Level 4.1 mmol/L (3.5-5.1) Chloride Level 108 mmol/L (98-107) H Carbon Dioxide Level 29 mmol/L (21-32) Anion Gap 6 (6-14) Blood Urea Nitrogen 21 mg/dL (7-20) H Creatinine 1.0 mg/dL (0.6-1.0) Estimated GFR (Cockcroft-Gault) 53.3 BUN/Creatinine Ratio 21 (6-20) H Glucose Level 94 mg/dL (70-99) Calcium Level 8.6 mg/dL (8.5-10.1) Total Bilirubin 0.5 mg/dL (0.2-1.0) Aspartate Amino Transferase (AST) 19 U/L (15-37) Alanine Aminotransferase (ALT) 22 U/L (14-59) Alkaline Phosphatase 71 U/L (46-116) Total Protein 6.5 g/dL (6.4-8.2) Albumin 3.0 g/dL (3.4-5.0) L Albumin/Globulin Ratio 0.9 (1.0-1.7) L Current Medications: Meds: Laboratory Tests Test 10/19/20 06:19 White Blood Count 7.6 x10^3/uL Red Blood Count 3.95 x10^6/uL Hemoglobin 12.3 g/dL Hematocrit 37.0 % Mean Corpuscular Volume 94 fL Mean Corpuscular Hemoglobin 31 pg Mean Corpuscular Hemoglobin Concent 33 g/dL Red Cell Distribution Width 13.2 % Platelet Count 268 x10^3/uL Neutrophils (%) (Auto) 58 % Lymphocytes (%) (Auto) 29 % Monocytes (%) (Auto) 10 % Eosinophils (%) (Auto) 3 % Basophils (%) (Auto) 1 % Neutrophils # (Auto) 4.4 x10^3uL Lymphocytes # (Auto) 2.2 x10^3/uL Monocytes # (Auto) 0.7 x10^3/uL Eosinophils # (Auto) 0.2 x10^3/uL Basophils # (Auto) 0.1 x10^3/uL Sodium Level 143 mmol/L Potassium Level 4.1 mmol/L Chloride Level 108 mmol/L Carbon Dioxide Level 29 mmol/L Anion Gap 6 Blood Urea Nitrogen 21 mg/dL Creatinine 1.0 mg/dL Estimated GFR (Cockcroft-Gault) 53.3 BUN/Creatinine Ratio 21 Glucose Level 94 mg/dL Calcium Level 8.6 mg/dL Total Bilirubin 0.5 mg/dL Aspartate Amino Transf (AST/SGOT) 19 U/L Alanine Aminotransferase (ALT/SGPT) 22 U/L Alkaline Phosphatase 71 U/L Total Protein 6.5 g/dL Albumin 3.0 g/dL Albumin/Globulin Ratio 0.9 Current Medications Medications (Trade) Dose Ordered Sig/Wali Route PRN Reason Start Time Stop Time Status Last Admin Dose Admin Acetaminophen (Tylenol) 650 mg PRN Q6HRS PRN PO MILD PAIN / TEMP > 100.3'F 10/12/20 20:00 Multi-Ingredient Ointment (Analgesic [place]) 1 cynthia PRN QID PRN TP MUSCLE PAIN 10/12/20 20:00 Al Hydroxide/Mg Hydroxide (Mylanta Plus Xs) 15 ml PRN AFTMEALHC PRN PO DYSPEPSIA 10/12/20 20:00 Magnesium Hydroxide (Milk Of Magnesia) 2,400 mg PRN QHS PRN PO CONSTIPATION 10/12/20 20:00 Vitamin D (Vitamin D3) 3,000 unit HS PO 10/13/20 21:15 10/19/20 20:45 Losartan Potassium (Cozaar) 50 mg HS PO 10/13/20 21:15 10/19/20 17:41 DC 10/18/20 20:45 Sertraline HCl (Zoloft) 25 mg DAILY PO 10/18/20 09:00 10/21/20 08:59 10/19/20 09:06 Sertraline HCl (Zoloft) 50 mg DAILY PO 10/21/20 09:00 Losartan Potassium (Cozaar) 50 mg 1X ONCE PO 10/18/20 15:30 10/18/20 15:31 DC 10/18/20 15:20 Losartan Potassium (Cozaar) 100 mg HS PO 10/19/20 18:00 10/19/20 18:38 DC Losartan Potassium (Cozaar) 100 mg HS PO 10/19/20 21:00 10/19/20 20:45 Current Medications Medications (Trade) Dose Ordered Sig/Wali Route PRN Reason Start Time Stop Time Status Last Admin Dose Admin Losartan Potassium (Cozaar) 100 mg HS PO 10/19/20 21:00 10/19/20 20:45 I have reviewed the current psychotropics carefully including drug interactions. Risk benefit ratio favors no change other than as noted in my dictated progress note. Diagnosis: Problems: (1) Impulse control disorder, unspecified (2) Anxiety disorder, unspecified (3) Dementia, vascular, with depression (4) Dementia, vascular, with delusions (5) Dementia in Alzheimer's disease with depression (6) Dementia in Alzheimer's disease with delusions (7) Dementia of the Alzheimer's type with early onset with behavioral di sturbance (8) Major neurocognitive disorder MICHELLE MG MD Oct 19, 2020 22:04
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
[2020-10-20 06:12] VITALS: BP 158/80
[2020-10-20] MEDS: SERTRALINE 25 MG TABLET. PO SCH (08:47)
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
--- NOTE | 2020-10-20 13:23 | NUR ---
NURSING NOTE PT IN HALLWAY CHAIR THIS AM UPON ASSESSMENT AND MEDICATION ADMINISTRATION. PT A&O X1 NAME ONLY. PT ATTEMPT TO PUT HER PILL INTO HER WATER CUP. NEEDS DIRECTION WITH TAKING HER PILL. TOOK HER PILL FINE AFTER INSTRUCTED ON WHAT TO DO WITH IT. PT ATTENDS GROUP, HAS BEEN CALM AND COOPERATIVE THUS FAR. NO BEHAVIORS NOTED. TIERA MARTINEZ.
[2020-10-20 15:57] VITALS: BP 102/56
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
[2020-10-20] MEDS: CHOLECALCIFEROL (VITAMIN D3) 1,000 UNIT TABLET PO SCH (20:10)
[2020-10-20] MEDS: LOSARTAN 50 MG TABLET. PO SCH (20:10)
--- NOTE | 2020-10-20 21:56 | PDOC ---
Exam Note: Chucho Note: Please also refer to the separate dictated note~for this date of service dictated separately.~Patient seen individually. Discussed the patient with Nursing staff reviewed the chart.~Reviewed interim history and current functioning. Reviewed vital signs,~Labs/ Radiology~and current medications noted below. Continue current treatment with the changes noted in the dictated addendum note Assessment: Vital Signs/I&O: Vital Signs Date Time Temp Pulse Resp B/P (MAP) Pulse Ox O2 Delivery O2 Flow Rate FiO2 10/20/20 20:10 53 102/56 10/20/20 15:57 98.7 16 97 10/20/20 06:12 Room Air I & O 10/19/20 10/19/20 10/20/20 15:00 23:00 07:00 Intake Total 360 ml 360 ml Balance 360 ml 360 ml Current Medications: Meds: Current Medications Medications (Trade) Dose Ordered Sig/Wali Route PRN Reason Start Time Stop Time Status Last Admin Dose Admin Acetaminophen (Tylenol) 650 mg PRN Q6HRS PRN PO MILD PAIN / TEMP > 100.3'F 10/12/20 20:00 Multi-Ingredient Ointment (Analgesic [place]) 1 cynthia PRN QID PRN TP MUSCLE PAIN 10/12/20 20:00 Al Hydroxide/Mg Hydroxide (Mylanta Plus Xs) 15 ml PRN AFTMEALHC PRN PO DYSPEPSIA 10/12/20 20:00 Magnesium Hydroxide (Milk Of Magnesia) 2,400 mg PRN QHS PRN PO CONSTIPATION 10/12/20 20:00 Vitamin D (Vitamin D3) 3,000 unit HS PO 10/13/20 21:15 10/20/20 20:10 Losartan Potassium (Cozaar) 50 mg HS PO 10/13/20 21:15 10/19/20 17:41 DC 10/18/20 20:45 Sertraline HCl (Zoloft) 25 mg DAILY PO 10/18/20 09:00 10/21/20 08:59 10/20/20 08:47 Sertraline HCl (Zoloft) 50 mg DAILY PO 10/21/20 09:00 Losartan Potassium (Cozaar) 50 mg 1X ONCE PO 10/18/20 15:30 10/18/20 15:31 DC 10/18/20 15:20 Losartan Potassium (Cozaar) 100 mg HS PO 10/19/20 18:00 10/19/20 18:38 DC Losartan Potassium (Cozaar) 100 mg HS PO 10/19/20 21:00 10/19/20 20:45 I have reviewed the current psychotropics carefully including drug interactions. Risk benefit ratio favors no change other than as noted in my dictated progress note. Diagnosis: Problems: (1) Impulse control disorder, unspecified (2) Anxiety disorder, unspecified (3) Dementia, vascular, with depression (4) Dementia, vascular, with delusions (5) Dementia in Alzheimer's disease with depression (6) Dementia in Alzheimer's disease with delusions (7) Dementia of the Alzheimer's type with early onset with behavioral disturbance (8) Major neurocognitive disorder MICHELLE MG MD Oct 20, 2020 21:56
--- NOTE | 2020-10-21 00:15 | NUR ---
Nursing Note Pt confused, sits with males in the dayroom. Puts her hands on his shoulders and hands. Easily redirected by staff, will laugh and say "oh ok I get it. I don't really know him that well." Pt takes po meds well, cooperative and compliant.
[2020-10-21 06:07] VITALS: BP 150/73
[2020-10-21] MEDS: SERTRALINE 50 MG TABLET. PO SCH (09:00)
--- NOTE | 2020-10-21 09:25 | PDOC ---
Exam Note: Chucho Note: This note is a late entry for covers elements not covered in my initial note. Subjective: The patient was seen individually in the evening of 10/19/2020 with Chris MOTT, discussed and reviewed the chart. She slept 6 hours previous night. The patient remains confused, anxious but not attaching herself to the male demented patients. She remains somewhat obsessive and with her daughters consent we will start her on Zoloft 25 mg a day for 3 days, then 50 mg a day. Review of Systems: No CV, , pulmonary, eye system symptoms on review. Mental Status Exam: The patient is oriented to herself. Insight and judgment, recent and remote memory, attention and concentration fund of knowledge is poor consistent with her diagnoses. Laboratory Data: Reviewed. Impression: Major neurocognitive disorder Alzheimer vascular with delusion, depression, behavioral disturbance. Anxiety disorder unspecified. Impulse control disorder unspecified. Plan: Continue current psychotropics from initial note. Assessment: Vital Signs/I&O: Vital Signs Date Time Temp Pulse Resp B/P (MAP) Pulse Ox O2 Delivery O2 Flow Rate FiO2 10/21/20 06:07 97.7 70 14 150/73 (98) 96 10/20/20 06:12 Room Air I & O 10/20/20 10/20/20 10/21/20 14:59 22:59 06:59 Intake Total 600 ml 480 ml Balance 600 ml 480 ml Current Medications: Meds: Current Medications Medications (Trade) Dose Ordered Sig/Wali Route PRN Reason Start Time Stop Time Status Last Admin Dose Admin Acetaminophen (Tylenol) 650 mg PRN Q6HRS PRN PO MILD PAIN / TEMP > 100.3'F 10/12/20 20:00 Multi-Ingredient Ointment (Analgesic [place]) 1 cynthia PRN QID PRN TP MUSCLE PAIN 10/12/20 20:00 Al Hydroxide/Mg Hydroxide (Mylanta Plus Xs) 15 ml PRN AFTMEALHC PRN PO DYSPEPSIA 10/12/20 20:00 Magnesium Hydroxide (Milk Of Magnesia) 2,400 mg PRN QHS PRN PO CONSTIPATION 10/12/20 20:00 Vitamin D (Vitamin D3) 3,000 unit HS PO 10/13/20 21:15 10/20/20 20:10 Losartan Potassium (Cozaar) 50 mg HS PO 10/13/20 21:15 10/19/20 17:41 DC 10/18/20 20:45 Sertraline HCl (Zoloft) 25 mg DAILY PO 10/18/20 09:00 10/21/20 08:59 DC 10/20/20 08:47 Sertraline HCl (Zoloft) 50 mg DAILY PO 10/21/20 09:00 Losartan Potassium (Cozaar) 50 mg 1X ONCE PO 10/18/20 15:30 10/18/20 15:31 DC 10/18/20 15:20 Losartan Potassium (Cozaar) 100 mg HS PO 10/19/20 18:00 10/19/20 18:38 DC Losartan Potassium (Cozaar) 100 mg HS PO 10/19/20 21:00 10/19/20 20:45 I have reviewed the current psychotropics carefully including drug interactions. Risk benefit ratio favors no change other than as noted in my dictated progress note. Diagnosis: Problems: (1) Impulse control disorder, unspecified (2) Anxiety disorder, unspecified (3) Dementia, vascular, with depression (4) Dementia, vascular, with delusions (5) Dementia in Alzheimer's disease with depression (6) Dementia in Alzheimer's disease with delusions (7) Dementia of the Alzheimer's type with early onset with behavioral d isturbance (8) Major neurocognitive disorder MICHELLE MG MD Oct 21, 2020 09:25
--- NOTE | 2020-10-21 09:47 | PDOC ---
Exam Note: Chucho Note: This note is a late entry for 10/20/2020 covers elements not covered in my initial note. Subjective: The patient was reviewed in the morning of 10/20/2020 for a treatment team meeting with Amada Chatterjee, Gwendolyn Gray and Ira (older adult social work specialist), Landy, activity therapy and Bety MOTT, discussed and reviewed the chart. She slept 6 hours previous night. She has not been following other male demented patients around the unit. Review of Systems: No CV, , pulmonary, eye system symptoms on review. Mental Status Exam: The patient is oriented to herself. Insight and judgment, recent and remote memory, attention and concentration fund of knowledge is poor consistent with her diagnoses. Laboratory Data: Reviewed. Impression: Major neurocognitive disorder Alzheimer vascular with delusion, depression, behavioral disturbance. Anxiety disorder unspecified. Impulse control disorder unspecified. Plan: Continue current psychotropics from initial note. Assessment: Vital Signs/I&O: Vital Signs Date Time Temp Pulse Resp B/P (MAP) Pulse Ox O2 Delivery O2 Flow Rate FiO2 10/21/20 06:07 97.7 70 14 150/73 (98) 96 10/20/20 06:12 Room Air I & O 10/20/20 10/20/20 10/21/20 15:00 23:00 07:00 Intake Total 600 ml 480 ml Balance 600 ml 480 ml Current Medications: Meds: Current Medications Medications (Trade) Dose Ordered Sig/Wali Route PRN Reason Start Time Stop Time Status Last Admin Dose Admin Acetaminophen (Tylenol) 650 mg PRN Q6HRS PRN PO MILD PAIN / TEMP > 100.3'F 10/12/20 20:00 Multi-Ingredient Ointment (Analgesic [place]) 1 cynthia PRN QID PRN TP MUSCLE PAIN 10/12/20 20:00 Al Hydroxide/Mg Hydroxide (Mylanta Plus Xs) 15 ml PRN AFTMEALHC PRN PO DYSPEPSIA 10/12/20 20:00 Magnesium Hydroxide (Milk Of Magnesia) 2,400 mg PRN QHS PRN PO CONSTIPATION 10/12/20 20:00 Vitamin D (Vitamin D3) 3,000 unit HS PO 10/13/20 21:15 10/20/20 20:10 Losartan Potassium (Cozaar) 50 mg HS PO 10/13/20 21:15 10/19/20 17:41 DC 10/18/20 20:45 Sertraline HCl (Zoloft) 25 mg DAILY PO 10/18/20 09:00 10/21/20 08:59 DC 10/20/20 08:47 Sertraline HCl (Zoloft) 50 mg DAILY PO 10/21/20 09:00 Losartan Potassium (Cozaar) 50 mg 1X ONCE PO 10/18/20 15:30 10/18/20 15:31 DC 10/18/20 15:20 Losartan Potassium (Cozaar) 100 mg HS PO 10/19/20 18:00 10/19/20 18:38 DC Losartan Potassium (Cozaar) 100 mg HS PO 10/19/20 21:00 10/19/20 20:45 I have reviewed the current psychotropics carefully including drug interactions. Risk benefit ratio favors no change other than as noted in my dictated progress note. Diagnosis: Problems: (1) Impulse control disorder, unspecified (2) Anxiety disorder, unspecified (3) Dementia, vascular, with depression (4) Dementia, vascular, with delusions (5) Dementia in Alzheimer's disease with depression (6) Dementia in Alzheimer's disease with delusions (7) Dementia of the Alzheimer's type with early onset with behavioral disturbance (8) Major neurocognitive disorder MICHELLE MG MD Oct 21, 2020 09:47
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
[2020-10-21 16:20] VITALS: BP 170/80
[2020-10-21] MEDS: LOSARTAN 50 MG TABLET. PO SCH (19:52)
[2020-10-21] MEDS: CHOLECALCIFEROL (VITAMIN D3) 1,000 UNIT TABLET PO SCH (19:52)
--- NOTE | 2020-10-21 21:33 | NUR ---
Nursing Note Pt flirtatious with a male peer, introduces him to me as her . Smiling and holding his hand at times. Med compliant but needs max encouragement to swallow. Doesn't really know what to do with the medications. Pt requires step by step instructions to put cup to mouth, swallow, drink, put pills in mouth etc. Wanders the unit, pleasantly confused.
--- NOTE | 2020-10-21 22:01 | PDOC ---
Exam Note: Chucho Note: Please also refer to the separate dictated note~for this date of service dictated separately.~Patient seen individually. Discussed the patient with Nursing staff reviewed the chart.~Reviewed interim history and current functioning. Reviewed vital signs,~Labs/ Radiology~and current medications noted below. Continue current treatment with the changes noted in the dictated addendum note Assessment: Vital Signs/I&O: Vital Signs Date Time Temp Pulse Resp B/P (MAP) Pulse Ox O2 Delivery O2 Flow Rate FiO2 10/21/20 19:52 75 170/80 10/21/20 16:20 96.8 18 96 10/20/20 06:12 Room Air I & O 10/20/20 10/20/20 10/21/20 15:00 23:00 07:00 Intake Total 600 ml 480 ml Balance 600 ml 480 ml Current Medications: Meds: Current Medications Medications (Trade) Dose Ordered Sig/Wali Route PRN Reason Start Time Stop Time Status Last Admin Dose Admin Acetaminophen (Tylenol) 650 mg PRN Q6HRS PRN PO MILD PAIN / TEMP > 100.3'F 10/12/20 20:00 Multi-Ingredient Ointment (Analgesic [place]) 1 cynthia PRN QID PRN TP MUSCLE PAIN 10/12/20 20:00 Al Hydroxide/Mg Hydroxide (Mylanta Plus Xs) 15 ml PRN AFTMEALHC PRN PO DYSPEPSIA 10/12/20 20:00 Magnesium Hydroxide (Milk Of Magnesia) 2,400 mg PRN QHS PRN PO CONSTIPATION 10/12/20 20:00 Vitamin D (Vitamin D3) 3,000 unit HS PO 10/13/20 21:15 10/21/20 19:52 Losartan Potassium (Cozaar) 50 mg HS PO 10/13/20 21:15 10/19/20 17:41 DC 10/18/20 20:45 Sertraline HCl (Zoloft) 25 mg DAILY PO 10/18/20 09:00 10/21/20 08:59 DC 10/20/20 08:47 Sertraline HCl (Zoloft) 50 mg DAILY PO 10/21/20 09:00 10/21/20 09:00 Losartan Potassium (Cozaar) 50 mg 1X ONCE PO 10/18/20 15:30 10/18/20 15:31 DC 10/18/20 15:20 Losartan Potassium (Cozaar) 100 mg HS PO 10/19/20 18:00 10/19/20 18:38 DC Losartan Potassium (Cozaar) 100 mg HS PO 10/19/20 21:00 10/21/20 19:52 Amlodipine Besylate (Norvasc) 5 mg DAILY PO 10/22/20 09:00 Current Medications Medications (Trade) Dose Ordered Sig/Wali Route PRN Reason Start Time Stop Time Status Last Admin Dose Admin Sertraline HCl (Zoloft) 50 mg DAILY PO 10/21/20 09:00 10/21/20 09:00 I have reviewed the current psychotropics carefully including drug interactions. Risk benefit ratio favors no change other than as noted in my dictated progress note. Diagnosis: Problems: (1) Impulse control disorder, unspecified (2) Anxiety disorder, unspecified (3) Dementia, vascular, with depression (4) Dementia, vascular, with delusions (5) Dementia in Alzheimer's disease with depression (6) Dementia in Alzheimer's disease with delusions (7) Dementia of the Alzheimer's type with early onset with behavioral disturbance (8) Major neurocognitive disorder MICHELLE MG MD Oct 21, 2020 22:01
[2020-10-22 06:05] VITALS: BP 167/78
--- NOTE | 2020-10-22 06:33 | PDOC ---
Exam Note: Chucho Note: This note is a late entry for 10/21/2020 covers elements not covered in my initial note. Subjective: The patient was seen individually in the evening of 10/21/2020 with Bety MOTT, discussed and reviewed the chart. She slept 7-1/4 hours previous night. She did well previous evening and during the day today. She remains animated more so with male demented patients, kissing one of the male patients earlier today on the cheek but redirected. I met with her in the dayroom. She was pleasant, verbal, smiling. Review of Systems: No CV, , pulmonary, eye system symptoms on review. Mental Status Exam: The patient is oriented to herself. Insight and judgment, recent and remote memory, attention and concentration fund of knowledge is poor consistent with her diagnoses. Laboratory Data: Reviewed. Impression: Major neurocognitive disorder Alzheimer vascular with delusion, depression, behavioral disturbance. Anxiety disorder unspecified. Impulse control disorder unspecified. Plan: Continue current psychotropics from initial note. Assessment: Vital Signs/I&O: Vital Signs Date Time Temp Pulse Resp B/P (MAP) Pulse Ox O2 Delivery O2 Flow Rate FiO2 10/22/20 06:05 97.4 86 16 167/78 (107) 95 Room Air I & O 10/21/20 10/21/20 10/22/20 14:59 22:59 06:59 Intake Total 240 ml 240 ml 240 ml Balance 240 ml 240 ml 240 ml Current Medications: Meds: Current Medications Medications (Trade) Dose Ordered Sig/Wali Route PRN Reason Start Time Stop Time Status Last Admin Dose Admin Acetaminophen (Tylenol) 650 mg PRN Q6HRS PRN PO MILD PAIN / TEMP > 100.3'F 10/12/20 20:00 Multi-Ingredient Ointment (Analgesic [place]) 1 cynthia PRN QID PRN TP MUSCLE PAIN 10/12/20 20:00 Al Hydroxide/Mg Hydroxide (Mylanta Plus Xs) 15 ml PRN AFTMEALHC PRN PO DYSPEPSIA 10/12/20 20:00 Magnesium Hydroxide (Milk Of Magnesia) 2,400 mg PRN QHS PRN PO CONSTIPATION 10/12/20 20:00 Vitamin D (Vitamin D3) 3,000 unit HS PO 10/13/20 21:15 10/21/20 19:52 Losartan Potassium (Cozaar) 50 mg HS PO 10/13/20 21:15 10/19/20 17:41 DC 10/18/20 20:45 Sertraline HCl (Zoloft) 25 mg DAILY PO 10/18/20 09:00 10/21/20 08:59 DC 10/20/20 08:47 Sertraline HCl (Zoloft) 50 mg DAILY PO 10/21/20 09:00 10/21/20 09:00 Losartan Potassium (Cozaar) 50 mg 1X ONCE PO 10/18/20 15:30 10/18/20 15:31 DC 10/18/20 15:20 Losartan Potassium (Cozaar) 100 mg HS PO 10/19/20 18:00 10/19/20 18:38 DC Losartan Potassium (Cozaar) 100 mg HS PO 10/19/20 21:00 10/21/20 19:52 Amlodipine Besylate (Norvasc) 5 mg DAILY PO 10/22/20 09:00 Current Medications Medications (Trade) Dose Ordered Sig/Wali Route PRN Reason Start Time Stop Time Status Last Admin Dose Admin Sertraline HCl (Zoloft) 50 mg DAILY PO 10/21/20 09:00 10/21/20 09:00 I have reviewed the current psychotropics carefully including drug interactions. Risk benefit ratio favors no change other than as noted in my dictated progress note. Diagnosis: Problems: (1) Impulse control disorder, unspecified (2) Anxiety disorder, unspecified (3) Dementia, vascular, with depression (4) Dementia, vascular, with delusions (5) Dementia in Alzheimer's disease with depression (6) Dementia in Alzheimer's disease with delusions (7) Dementia of the Alzheimer's type with early onset with behavioral disturbance (8) Major neurocognitive disorder MICHELLE MG MD Oct 22, 2020 06:33
[2020-10-22] MEDS: SERTRALINE 50 MG TABLET. PO SCH (08:37)
[2020-10-22] MEDS: amLODIPine BESYLATE 5 MG TABLET PO SCH (08:39)
[2020-10-22 15:51] VITALS: BP 162/87
--- NOTE | 2020-10-22 16:46 | NUR ---
Pt up for meals and out to day room. Has been pleasant and compliant with meds. Social with other peers.
[2020-10-22] MEDS: CHOLECALCIFEROL (VITAMIN D3) 1,000 UNIT TABLET PO SCH (18:30)
[2020-10-22] MEDS: LOSARTAN 50 MG TABLET. PO SCH (18:30)
--- NOTE | 2020-10-22 21:56 | PDOC ---
Exam Note: Chucho Note: Please also refer to the separate dictated note~for this date of service dictated separately.~Patient seen individually. Discussed the patient with Nursing staff reviewed the chart.~Reviewed interim history and current functioning. Reviewed vital signs,~Labs/ Radiology~and current medications noted below. Continue current treatment with the changes noted in the dictated addendum note Assessment: Vital Signs/I&O: Vital Signs Date Time Temp Pulse Resp B/P (MAP) Pulse Ox O2 Delivery O2 Flow Rate FiO2 10/22/20 18:30 75 162/87 10/22/20 15:51 98.0 20 98 10/22/20 06:05 Room Air I & O 10/21/20 10/21/20 10/22/20 15:00 23:00 07:00 Intake Total 240 ml 240 ml 240 ml Balance 240 ml 240 ml 240 ml Current Medications: Meds: Current Medications Medications (Trade) Dose Ordered Sig/Wali Route PRN Reason Start Time Stop Time Status Last Admin Dose Admin Acetaminophen (Tylenol) 650 mg PRN Q6HRS PRN PO MILD PAIN / TEMP > 100.3'F 10/12/20 20:00 Multi-Ingredient Ointment (Analgesic [place]) 1 cynthia PRN QID PRN TP MUSCLE PAIN 10/12/20 20:00 Al Hydroxide/Mg Hydroxide (Mylanta Plus Xs) 15 ml PRN AFTMEALHC PRN PO DYSPEPSIA 10/12/20 20:00 Magnesium Hydroxide (Milk Of Magnesia) 2,400 mg PRN QHS PRN PO CONSTIPATION 10/12/20 20:00 Vitamin D (Vitamin D3) 3,000 unit HS PO 10/13/20 21:15 10/22/20 18:30 Losartan Potassium (Cozaar) 50 mg HS PO 10/13/20 21:15 10/19/20 17:41 DC 10/18/20 20:45 Sertraline HCl (Zoloft) 25 mg DAILY PO 10/18/20 09:00 10/21/20 08:59 DC 10/20/20 08:47 Sertraline HCl (Zoloft) 50 mg DAILY PO 10/21/20 09:00 10/22/20 08:37 Losartan Potassium (Cozaar) 50 mg 1X ONCE PO 10/18/20 15:30 10/18/20 15:31 DC 10/18/20 15:20 Losartan Potassium (Cozaar) 100 mg HS PO 10/19/20 18:00 10/19/20 18:38 DC Losartan Potassium (Cozaar) 100 mg HS PO 10/19/20 21:00 10/22/20 18:30 Amlodipine Besylate (Norvasc) 5 mg DAILY PO 10/22/20 09:00 10/22/20 08:39 Current Medications Medications (Trade) Dose Ordered Sig/Wali Route PRN Reason Start Time Stop Time Status Last Admin Dose Admin Amlodipine Besylate (Norvasc) 5 mg DAILY PO 10/22/20 09:00 10/22/20 08:39 I have reviewed the current psychotropics carefully including drug interactions. Risk benefit ratio favors no change other than as noted in my dictated progress note. Diagnosis: Problems: (1) Impulse control disorder, unspecified (2) Anxiety disorder, unspecified (3) Dementia, vascular, with depression (4) Dementia, vascular, with delusions (5) Dementia in Alzheimer's disease with depression (6) Dementia in Alzheimer's disease with delusions (7) Dementia of the Alzheimer's type with early onset with behavioral disturbance (8) Major neurocognitive disorder MICHELLE MG MD Oct 22, 2020 21:56
--- NOTE | 2020-10-23 06:10 | NUR ---
Pt states she "feels numb" and that she "didn't sleep well." She expressed she didn't think she would have a good day but hopes to nap today which may make it better. Addendum: 10/23/20 at 0613 by DANNY ROSARIO RN Please disregard this note-wrong pt.
[2020-10-23 06:14] VITALS: BP 166/79
[2020-10-23] MEDS: amLODIPine BESYLATE 5 MG TABLET PO SCH (08:41)
[2020-10-23] MEDS: SERTRALINE 50 MG TABLET. PO SCH (08:46)
--- NOTE | 2020-10-23 09:56 | PDOC ---
Exam Note: Chucho Note: This note is a late entry for 10/22/2020 covers elements not covered in my initial note. Subjective: The patient was seen individually in the evening of 10/22/2020 with Kate MOTT, discussed and reviewed the chart. She slept 6 hours previous night. I met with the patient in the dayroom. She is pleasant, cooperative, less clingy to male patients, smiling as I met with her. Review of Systems: No CV, , pulmonary, eye system symptoms on review. Mental Status Exam: The patient is oriented to herself. Insight and judgment, recent and remote memory, attention and concentration fund of knowledge is poor consistent with her diagnoses. Laboratory Data: Reviewed. Impression: Major neurocognitive disorder Alzheimer vascular with delusion, depression, behavioral disturbance. Anxiety disorder unspecified. Impulse control disorder unspecified. Plan: Continue current psychotropics from initial note. Assessment: Vital Signs/I&O: Vital Signs Date Time Temp Pulse Resp B/P (MAP) Pulse Ox O2 Delivery O2 Flow Rate FiO2 10/23/20 08:41 78 166/79 10/23/20 06:14 98.4 16 96 Room Air I & O 10/22/20 10/22/20 10/23/20 15:00 23:00 07:00 Intake Total 480 ml 480 ml Balance 480 ml 480 ml Current Medications: Meds: Current Medications Medications (Trade) Dose Ordered Sig/Wali Route PRN Reason Start Time Stop Time Status Last Admin Dose Admin Acetaminophen (Tylenol) 650 mg PRN Q6HRS PRN PO MILD PAIN / TEMP > 100.3'F 10/12/20 20:00 Multi-Ingredient Ointment (Analgesic [place]) 1 cynthia PRN QID PRN TP MUSCLE PAIN 10/12/20 20:00 Al Hydroxide/Mg Hydroxide (Mylanta Plus Xs) 15 ml PRN AFTMEALHC PRN PO DYSPEPSIA 10/12/20 20:00 Magnesium Hydroxide (Milk Of Magnesia) 2,400 mg PRN QHS PRN PO CONSTIPATION 10/12/20 20:00 Vitamin D (Vitamin D3) 3,000 unit HS PO 10/13/20 21:15 10/22/20 18:30 Losartan Potassium (Cozaar) 50 mg HS PO 10/13/20 21:15 10/19/20 17:41 DC 10/18/20 20:45 Sertraline HCl (Zoloft) 25 mg DAILY PO 10/18/20 09:00 10/21/20 08:59 DC 10/20/20 08:47 Sertraline HCl (Zoloft) 50 mg DAILY PO 10/21/20 09:00 10/23/20 08:46 Losartan Potassium (Cozaar) 50 mg 1X ONCE PO 10/18/20 15:30 10/18/20 15:31 DC 10/18/20 15:20 Losartan Potassium (Cozaar) 100 mg HS PO 10/19/20 18:00 10/19/20 18:38 DC Losartan Potassium (Cozaar) 100 mg HS PO 10/19/20 21:00 10/22/20 18:30 Amlodipine Besylate (Norvasc) 5 mg DAILY PO 10/22/20 09:00 10/23/20 08:41 I have reviewed the current psychotropics carefully including drug interactions. Risk benefit ratio favors no change other than as noted in my dictated progress note. Diagnosis: Problems: (1) Impulse control disorder, unspecified (2) Anxiety disorder, unspecified (3) Dementia, vascular, with depression (4) Dementia, vascular, with delusions (5) Dementia in Alzheimer's disease with depression (6) Dementia in Alzheimer's disease with delusions (7) Dementia of the Alzheimer's type with early onset with behavioral disturbance (8) Major neurocognitive disorder MICHELLE MG MD Oct 23, 2020 09:56
--- NOTE | 2020-10-23 11:33 | NUR ---
Pt is A&O to self only, confused and disorganized. She attempted non-compliance with her medications; stating one particular pill she does not take (Sertraline) and attempted multiple times to spit the pill out. Medication was inserted into her mouth multiple times with a spoon, her hands were held d/t multiple attempts at reaching into her mouth to pull the Sertraline out. She is absent of SI/HI/VH/AH/pain. Plan of care continues, will pass to next shift.
--- NOTE | 2020-10-23 14:22 | NUR ---
Pt observed in the day room sitting next to a male patient, rubbing and stroking his neck. This nurse attempted to redirect/educate pt on not touching other patients. Both attempts were met with pt continuing to caress the male patient's neck and asking why she couldn't continue. Male patient was escorted away from pt to sit with CNAs on the other end of the day room.
[2020-10-23 16:03] VITALS: BP 154/75
[2020-10-23] MEDS: LOSARTAN 50 MG TABLET. PO SCH (20:34)
[2020-10-23] MEDS: CHOLECALCIFEROL (VITAMIN D3) 1,000 UNIT TABLET PO SCH (20:34)
--- NOTE | 2020-10-23 21:59 | PDOC ---
Exam Note: Chucho Note: Please also refer to the separate dictated note~for this date of service dictated separately.~Patient seen individually. Discussed the patient with Nursing staff reviewed the chart.~Reviewed interim history and current functioning. Reviewed vital signs,~Labs/ Radiology~and current medications noted below. Continue current treatment with the changes noted in the dictated addendum note Assessment: Vital Signs/I&O: Vital Signs Date Time Temp Pulse Resp B/P (MAP) Pulse Ox O2 Delivery O2 Flow Rate FiO2 10/23/20 20:34 74 154/75 10/23/20 16:03 97.6 18 97 10/23/20 06:14 Room Air I & O 10/22/20 10/22/20 10/23/20 15:00 23:00 07:00 Intake Total 480 ml 480 ml Balance 480 ml 480 ml Current Medications: Meds: Current Medications Medications (Trade) Dose Ordered Sig/Wali Route PRN Reason Start Time Stop Time Status Last Admin Dose Admin Acetaminophen (Tylenol) 650 mg PRN Q6HRS PRN PO MILD PAIN / TEMP > 100.3'F 10/12/20 20:00 Multi-Ingredient Ointment (Analgesic [place]) 1 cynthia PRN QID PRN TP MUSCLE PAIN 10/12/20 20:00 Al Hydroxide/Mg Hydroxide (Mylanta Plus Xs) 15 ml PRN AFTMEALHC PRN PO DYSPEPSIA 10/12/20 20:00 Magnesium Hydroxide (Milk Of Magnesia) 2,400 mg PRN QHS PRN PO CONSTIPATION 10/12/20 20:00 Vitamin D (Vitamin D3) 3,000 unit HS PO 10/13/20 21:15 10/23/20 20:34 Losartan Potassium (Cozaar) 50 mg HS PO 10/13/20 21:15 10/19/20 17:41 DC 10/18/20 20:45 Sertraline HCl (Zoloft) 25 mg DAILY PO 10/18/20 09:00 10/21/20 08:59 DC 10/20/20 08:47 Sertraline HCl (Zoloft) 50 mg DAILY PO 10/21/20 09:00 10/23/20 08:46 Losartan Potassium (Cozaar) 50 mg 1X ONCE PO 10/18/20 15:30 10/18/20 15:31 DC 10/18/20 15:20 Losartan Potassium (Cozaar) 100 mg HS PO 10/19/20 18:00 10/19/20 18:38 DC Losartan Potassium (Cozaar) 100 mg HS PO 10/19/20 21:00 10/23/20 20:34 Amlodipine Besylate (Norvasc) 5 mg DAILY PO 10/22/20 09:00 10/23/20 08:41 I have reviewed the current psychotropics carefully including drug interactions. Risk benefit ratio favors no change other than as noted in my dictated progress note. Diagnosis: Problems: (1) Impulse control disorder, unspecified (2) Anxiety disorder, unspecified (3) Dementia, vascular, with depression (4) Dementia, vascular, with delusions (5) Dementia in Alzheimer's disease with depression (6) Dementia in Alzheimer's disease with delusions (7) Dementia of the Alzheimer's type with early onset with behavioral distur bance (8) Major neurocognitive disorder MICHELLE MG MD Oct 23, 2020 21:59
--- NOTE | 2020-10-23 22:53 | NUR ---
Pt sitting in the day room when approached. Pt confused, and disorganized but pleasant. Pt became slightly irritable when from a male peer she was attempting to lead to her room but was easily re-directed. Pt cooperative with assessment and compliant with medications administered whole.
[2020-10-24 05:54] VITALS: BP 139/79
[2020-10-24] MEDS: amLODIPine BESYLATE 5 MG TABLET PO SCH (08:18)
[2020-10-24] MEDS: SERTRALINE 50 MG TABLET. PO SCH (08:18)
--- NOTE | 2020-10-24 09:26 | PDOC ---
Exam Note: Chucho Note: This note is a late entry for 10/23/2020 covers elements not covered in my initial note. Subjective: The patient was seen individually in the evening of 10/23/2020 with Bety MOTT, discussed and reviewed the chart. She slept 6-1/4 hours previous night. The patient remains confused, pleasant but seems to gravitate towards one of the other male demented patients but does redirect. I met with her individually in the dayroom to address this. She is quite oblivious of this, pleasant, smiling. She was able to repeat my name after I told her what it was when she asked me for it. Review of Systems: No CV, , pulmonary, eye system symptoms on review. Mental Status Exam: The patient is oriented to herself. Insight and judgment, recent and remote memory, attention and concentration fund of knowledge is poor consistent with her diagnoses. Laboratory Data: Reviewed. Impression: Major neurocognitive disorder Alzheimer vascular with delusion, depression, behavioral disturbance. Anxiety disorder unspecified. Impulse control disorder unspecified. Plan: Continue current psychotropics from initial note. Assessment: Vital Signs/I&O: Vital Signs Date Time Temp Pulse Resp B/P (MAP) Pulse Ox O2 Delivery O2 Flow Rate FiO2 10/24/20 08:18 81 139/79 10/24/20 05:54 98.9 16 94 Room Air I & O 10/23/20 10/23/20 10/24/20 15:00 23:00 07:00 Intake Total 720 ml 360 ml Balance 720 ml 360 ml Current Medications: Meds: Current Medications Medications (Trade) Dose Ordered Sig/Wali Route PRN Reason Start Time Stop Time Status Last Admin Dose Admin Acetaminophen (Tylenol) 650 mg PRN Q6HRS PRN PO MILD PAIN / TEMP > 100.3'F 10/12/20 20:00 Multi-Ingredient Ointment (Analgesic [place]) 1 cynthia PRN QID PRN TP MUSCLE PAIN 10/12/20 20:00 Al Hydroxide/Mg Hydroxide (Mylanta Plus Xs) 15 ml PRN AFTMEALHC PRN PO DYSPEPSIA 10/12/20 20:00 Magnesium Hydroxide (Milk Of Magnesia) 2,400 mg PRN QHS PRN PO CONSTIPATION 10/12/20 20:00 Vitamin D (Vitamin D3) 3,000 unit HS PO 10/13/20 21:15 10/23/20 20:34 Losartan Potassium (Cozaar) 50 mg HS PO 10/13/20 21:15 10/19/20 17:41 DC 10/18/20 20:45 Sertraline HCl (Zoloft) 25 mg DAILY PO 10/18/20 09:00 10/21/20 08:59 DC 10/20/20 08:47 Sertraline HCl (Zoloft) 50 mg DAILY PO 10/21/20 09:00 10/24/20 08:18 Losartan Potassium (Cozaar) 50 mg 1X ONCE PO 10/18/20 15:30 10/18/20 15:31 DC 10/18/20 15:20 Losartan Potassium (Cozaar) 100 mg HS PO 10/19/20 18:00 10/19/20 18:38 DC Losartan Potassium (Cozaar) 100 mg HS PO 10/19/20 21:00 10/23/20 20:34 Amlodipine Besylate (Norvasc) 5 mg DAILY PO 10/22/20 09:00 10/24/20 08:18 I have reviewed the current psychotropics carefully including drug interactions. Risk benefit ratio favors no change other than as noted in my dictated progress note. Diagnosis: Problems: (1) Impulse control disorder, unspecified (2) Anxiety disorder, unspecified (3) Dementia, vascular, with depression (4) Dementia, vascular, with delusions (5) Dementia in Alzheimer's disease with depression (6) Dementia in Alzheimer's disease with delusions (7) Dementia of the Alzheimer's type with early onset with behavioral disturbance (8) Major neurocognitive disorder MICHELLE MG MD Oct 24, 2020 09:26
--- NOTE | 2020-10-24 11:54 | NUR ---
Nursing note: Pt in dining room at time of AM med pass and assessment. She is pleasantly confused and compliant with meds whole, though did require assistance by giving them to her on a spoon. She is cooperative with her assessment and denies having any pain. Pt is currently sitting next to a male pt on the couch, but is not demonstrating any inappropriate behaviors at this time. Will continue to monitor.
[2020-10-24 16:07] VITALS: BP 160/81
[2020-10-24] MEDS: LOSARTAN 50 MG TABLET. PO SCH (20:16)
[2020-10-24] MEDS: CHOLECALCIFEROL (VITAMIN D3) 1,000 UNIT TABLET PO SCH (20:16)
--- NOTE | 2020-10-24 22:00 | PDOC ---
Exam Note: Chucho Note: Please also refer to the separate dictated note~for this date of service dictated separately.~Patient seen individually. Discussed the patient with Nursing staff reviewed the chart.~Reviewed interim history and current functioning. Reviewed vital signs,~Labs/ Radiology~and current medications noted below. Continue current treatment with the changes noted in the dictated addendum note Assessment: Vital Signs/I&O: Vital Signs Date Time Temp Pulse Resp B/P (MAP) Pulse Ox O2 Delivery O2 Flow Rate FiO2 10/24/20 20:16 86 160/81 10/24/20 16:07 98.1 20 99 10/24/20 05:54 Room Air I & O 10/23/20 10/23/20 10/24/20 15:00 23:00 07:00 Intake Total 720 ml 360 ml Balance 720 ml 360 ml Current Medications: Meds: Current Medications Medications (Trade) Dose Ordered Sig/Wali Route PRN Reason Start Time Stop Time Status Last Admin Dose Admin Acetaminophen (Tylenol) 650 mg PRN Q6HRS PRN PO MILD PAIN / TEMP > 100.3'F 10/12/20 20:00 Multi-Ingredient Ointment (Analgesic [place]) 1 cynthia PRN QID PRN TP MUSCLE PAIN 10/12/20 20:00 Al Hydroxide/Mg Hydroxide (Mylanta Plus Xs) 15 ml PRN AFTMEALHC PRN PO DYSPEPSIA 10/12/20 20:00 Magnesium Hydroxide (Milk Of Magnesia) 2,400 mg PRN QHS PRN PO CONSTIPATION 10/12/20 20:00 Vitamin D (Vitamin D3) 3,000 unit HS PO 10/13/20 21:15 10/24/20 20:16 Losartan Potassium (Cozaar) 50 mg HS PO 10/13/20 21:15 10/19/20 17:41 DC 10/18/20 20:45 Sertraline HCl (Zoloft) 25 mg DAILY PO 10/18/20 09:00 10/21/20 08:59 DC 10/20/20 08:47 Sertraline HCl (Zoloft) 50 mg DAILY PO 10/21/20 09:00 10/24/20 08:18 Losartan Potassium (Cozaar) 50 mg 1X ONCE PO 10/18/20 15:30 10/18/20 15:31 DC 10/18/20 15:20 Losartan Potassium (Cozaar) 100 mg HS PO 10/19/20 18:00 10/19/20 18:38 DC Losartan Potassium (Cozaar) 100 mg HS PO 10/19/20 21:00 10/24/20 20:16 Amlodipine Besylate (Norvasc) 5 mg DAILY PO 10/22/20 09:00 10/24/20 08:18 I have reviewed the current psychotropics carefully including drug interactions. Risk benefit ratio favors no change other than as noted in my dictated progress note. Diagnosis: Problems: (1) Impulse control disorder, unspecified (2) Anxiety disorder, unspecified (3) Dementia, vascular, with depression (4) Dementia, vascular, with delusions (5) Dementia in Alzheimer's disease with depression (6) Dementia in Alzheimer's disease with delusions (7) Dementia of the Alzheimer's type with early onset with behavioral distur bance (8) Major neurocognitive disorder MICHELLE MG MD Oct 24, 2020 22:00
[2020-10-25 06:16] VITALS: BP 159/80
[2020-10-25] MEDS: amLODIPine BESYLATE 5 MG TABLET PO SCH (08:20)
[2020-10-25] MEDS: SERTRALINE 50 MG TABLET. PO SCH (08:20)
--- NOTE | 2020-10-25 09:08 | PDOC ---
Exam Note: Chucho Note: This note is a late entry for 10/24/2020 covers elements not covered in my initial note. Subjective: The patient was seen individually in the evening of 10/24/2020 with Malgorzata MOTT, discussed and reviewed the chart. She slept 7-1/2 hours previous night. The patient remains confused. I met with her in the dayroom. She was seated in a sofa next to another male demented patients who she stays close to believing he is her . She was resistive to cares yesterday but better today, tolerating Zoloft. Review of Systems: No CV, , pulmonary, eye system symptoms on review. Mental Status Exam: The patient is oriented to herself. Insight and judgment, recent and remote memory, attention and concentration fund of knowledge is poor consistent with her diagnoses. Laboratory Data: Reviewed. Impression: Major neurocognitive disorder Alzheimer vascular with delusion, depression, behavioral disturbance. Anxiety disorder unspecified. Impulse control disorder unspecified. Plan: Continue current psychotropics from initial note. Assessment: Vital Signs/I&O: Vital Signs Date Time Temp Pulse Resp B/P (MAP) Pulse Ox O2 Delivery O2 Flow Rate FiO2 10/25/20 08:20 82 159/80 10/25/20 06:16 97.7 18 96 Room Air I & O 10/24/20 10/24/20 10/25/20 15:00 23:00 07:00 Intake Total 720 ml 480 ml Balance 720 ml 480 ml Current Medications: Meds: Current Medications Medications (Trade) Dose Ordered Sig/Wali Route PRN Reason Start Time Stop Time Status Last Admin Dose Admin Acetaminophen (Tylenol) 650 mg PRN Q6HRS PRN PO MILD PAIN / TEMP > 100.3'F 10/12/20 20:00 Multi-Ingredient Ointment (Analgesic [place]) 1 cynthia PRN QID PRN TP MUSCLE PAIN 10/12/20 20:00 Al Hydroxide/Mg Hydroxide (Mylanta Plus Xs) 15 ml PRN AFTMEALHC PRN PO DYSPEPSIA 10/12/20 20:00 Magnesium Hydroxide (Milk Of Magnesia) 2,400 mg PRN QHS PRN PO CONSTIPATION 10/12/20 20:00 Vitamin D (Vitamin D3) 3,000 unit HS PO 10/13/20 21:15 10/24/20 20:16 Losartan Potassium (Cozaar) 50 mg HS PO 10/13/20 21:15 10/19/20 17:41 DC 10/18/20 20:45 Sertraline HCl (Zoloft) 25 mg DAILY PO 10/18/20 09:00 10/21/20 08:59 DC 10/20/20 08:47 Sertraline HCl (Zoloft) 50 mg DAILY PO 10/21/20 09:00 10/25/20 08:20 Losartan Potassium (Cozaar) 50 mg 1X ONCE PO 10/18/20 15:30 10/18/20 15:31 DC 10/18/20 15:20 Losartan Potassium (Cozaar) 100 mg HS PO 10/19/20 18:00 10/19/20 18:38 DC Losartan Potassium (Cozaar) 100 mg HS PO 10/19/20 21:00 10/24/20 20:16 Amlodipine Besylate (Norvasc) 5 mg DAILY PO 10/22/20 09:00 10/25/20 08:20 I have reviewed the current psychotropics carefully including drug interactions. Risk benefit ratio favors no change other than as noted in my dictated progress note. Diagnosis: Problems: (1) Impulse control disorder, unspecified (2) Anxiety disorder, unspecified (3) Dementia, vascular, with depression (4) Dementia, vascular, with delusions (5) Dementia in Alzheimer's disease with depression (6) Dementia in Alzheimer's disease with delusions (7) Dementia of the Alzheimer's type with early onset with behavioral disturba nce (8) Major neurocognitive disorder MICHELLE MG MD Oct 25, 2020 09:08
--- NOTE | 2020-10-25 11:32 | NUR ---
Nursing note: Pt in dining room at time of AM med pass and assessment. She is pleasant, med compliant and cooperative. She denies having any pain/concerns. She is very social with both staff and peers. She is currently sitting in the day room watching TV. Will continue to monitor.
[2020-10-25 16:00] VITALS: BP 167/76
[2020-10-25] MEDS: LOSARTAN 50 MG TABLET. PO SCH (20:23)
[2020-10-25] MEDS: CHOLECALCIFEROL (VITAMIN D3) 1,000 UNIT TABLET PO SCH (20:23)
--- NOTE | 2020-10-25 22:18 | PDOC ---
Exam Note: Chucho Note: Please also refer to the separate dictated note~for this date of service dictated separately.~Patient seen individually. Discussed the patient with Nursing staff reviewed the chart.~Reviewed interim history and current functioning. Reviewed vital signs,~Labs/ Radiology~and current medications noted below. Continue current treatment with the changes noted in the dictated addendum note Assessment: Vital Signs/I&O: Vital Signs Date Time Temp Pulse Resp B/P (MAP) Pulse Ox O2 Delivery O2 Flow Rate FiO2 10/25/20 20:23 84 167/76 10/25/20 16:00 97.6 20 98 10/25/20 06:16 Room Air I & O 10/24/20 10/24/20 10/25/20 15:00 23:00 07:00 Intake Total 720 ml 480 ml Balance 720 ml 480 ml Current Medications: Meds: Current Medications Medications (Trade) Dose Ordered Sig/Wali Route PRN Reason Start Time Stop Time Status Last Admin Dose Admin Acetaminophen (Tylenol) 650 mg PRN Q6HRS PRN PO MILD PAIN / TEMP > 100.3'F 10/12/20 20:00 Multi-Ingredient Ointment (Analgesic [place]) 1 cynthia PRN QID PRN TP MUSCLE PAIN 10/12/20 20:00 Al Hydroxide/Mg Hydroxide (Mylanta Plus Xs) 15 ml PRN AFTMEALHC PRN PO DYSPEPSIA 10/12/20 20:00 Magnesium Hydroxide (Milk Of Magnesia) 2,400 mg PRN QHS PRN PO CONSTIPATION 10/12/20 20:00 Vitamin D (Vitamin D3) 3,000 unit HS PO 10/13/20 21:15 10/25/20 20:23 Losartan Potassium (Cozaar) 50 mg HS PO 10/13/20 21:15 10/19/20 17:41 DC 10/18/20 20:45 Sertraline HCl (Zoloft) 25 mg DAILY PO 10/18/20 09:00 10/21/20 08:59 DC 10/20/20 08:47 Sertraline HCl (Zoloft) 50 mg DAILY PO 10/21/20 09:00 10/25/20 08:20 Losartan Potassium (Cozaar) 50 mg 1X ONCE PO 10/18/20 15:30 10/18/20 15:31 DC 10/18/20 15:20 Losartan Potassium (Cozaar) 100 mg HS PO 10/19/20 18:00 10/19/20 18:38 DC Losartan Potassium (Cozaar) 100 mg HS PO 10/19/20 21:00 10/25/20 20:23 Amlodipine Besylate (Norvasc) 5 mg DAILY PO 10/22/20 09:00 10/25/20 08:20 I have reviewed the current psychotropics carefully including drug interactions. Risk benefit ratio favors no change other than as noted in my dictated progress note. Diagnosis: Problems: (1) Impulse control disorder, unspecified (2) Anxiety disorder, unspecified (3) Dementia, vascular, with depression (4) Dementia, vascular, with delusions (5) Dementia in Alzheimer's disease with depression (6) Dementia in Alzheimer's disease with delusions (7) Dementia of the Alzheimer's type with early onset with behavioral distur bance (8) Major neurocognitive disorder MICHELLE MG MD Oct 25, 2020 22:18
--- NOTE | 2020-10-25 22:35 | NUR ---
Pt lying in bed awake when approached. Pt irritable, sarcastic, and snarky this evening. Pt was asked to leave the day room this evening after making negative comments about another pt. Pt had been asked multiple times by staff not to speak about other pt in such a manner, however, pt continued to do so. Pt complied with staff request to leave the day room and return to her room. Pt cooperative with assessment and compliant with medications administered whole.
[2020-10-26 06:37] VITALS: BP 166/83
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
[2020-10-26] MEDS: SERTRALINE 50 MG TABLET. PO SCH (08:28)
[2020-10-26] MEDS: amLODIPine BESYLATE 5 MG TABLET PO SCH (08:28)
--- NOTE | 2020-10-26 10:22 | NUR ---
Nursing note: Pt in dining room for AM med pass and assessment. She was resistive with her medications, taking them out of her mouth and placing them on her plate. She was eventually compliant in taking both her pills floated in pudding. She is currently resting quietly in her room. Will continue to monitor.
--- NOTE | 2020-10-26 12:26 | NUR ---
[facility] Social Work Discharge Planning Form Patient Name SANTOS TOBIN Admit Date: [] DISCHARGE PLAN Discharge Destination: [facility] Care Assessment: No Level II Assessment: No Transportation: Pt maria estherrEleni will p/u at 1000. Special Instructions/Notes: Please call/fax medications into pt pharmacy, [facility] [phone] on 10/27/20 so that Eleni can pick the medications up beforehand and be able to drop pt off with the medications at the facility at the same time. DISCHARGE TO FACILITY Facility: [facility] Address: [address] [place] [id number] Contact Name: Ask for RN on duty to give report to. Rosalia is the director of memory care, but may be out of the office on the day of pt d/c from [facility]. PCP: Dr. Markell Palacios Psychiatrist: None
--- NOTE | 2020-10-26 13:53 | NUR ---
DESIRAE spoke with pt dtr, Eleni, to discuss d/c date/time. Eleni is available on 10/28/20 at 1000 for p/u and transport back to facility, [facility]. Eleni requested that medications be sent to pt pharmacy on 10/27/20 if possible as she would like to pick the medications up prior to pt discharging that way she can drop pt off along with her medications to her facility at the same time d/t pt facility and pharmacy being quite a distance from one another. DESIRAE then spoke with pt dtr/DPOA, Shameka, to provide update on d/c and provide details that have been arranged with Eleni. Shameka is agreeable to the discharge plan and just requests to be included in treatment team tomorrow and would like for doctor to include in his discharge summary for pt facility to check pt blood pressure prior to giving pt daily medications as she knows that pt has had an adjustment in her b/p medication while here at [facility]. Shameka is not sure that the facility would routinely do check b/p without it being recommended and she feels like it would hold more weight with the facility if it were included in the discharge summary vs the request just being made by her. DESIRAE provided the request from Eleni/Shameka to nursing staff and will continue to follow.
[2020-10-26 15:54] VITALS: BP 161/71
[2020-10-26] MEDS: CHOLECALCIFEROL (VITAMIN D3) 1,000 UNIT TABLET PO SCH (20:43)
[2020-10-26] MEDS: LOSARTAN 50 MG TABLET. PO SCH (20:46)
--- NOTE | 2020-10-26 22:05 | PDOC ---
Exam Note: Chucho Note: Please also refer to the separate dictated note~for this date of service dictated separately.~Patient seen individually. Discussed the patient with Nursing staff reviewed the chart.~Reviewed interim history and current functioning. Reviewed vital signs,~Labs/ Radiology~and current medications noted below. Continue current treatment with the changes noted in the dictated addendum note Assessment: Vital Signs/I&O: Vital Signs Date Time Temp Pulse Resp B/P (MAP) Pulse Ox O2 Delivery O2 Flow Rate FiO2 10/26/20 20:46 91 161/71 10/26/20 15:54 98.3 20 96 10/26/20 06:37 Room Air I & O 10/25/20 10/25/20 10/26/20 15:00 23:00 07:00 Intake Total 600 ml 360 ml Balance 600 ml 360 ml Current Medications: Meds: Current Medications Medications (Trade) Dose Ordered Sig/Wali Route PRN Reason Start Time Stop Time Status Last Admin Dose Admin Acetaminophen (Tylenol) 650 mg PRN Q6HRS PRN PO MILD PAIN / TEMP > 100.3'F 10/12/20 20:00 Multi-Ingredient Ointment (Analgesic [place]) 1 cynthia PRN QID PRN TP MUSCLE PAIN 10/12/20 20:00 Al Hydroxide/Mg Hydroxide (Mylanta Plus Xs) 15 ml PRN AFTMEALHC PRN PO DYSPEPSIA 10/12/20 20:00 Magnesium Hydroxide (Milk Of Magnesia) 2,400 mg PRN QHS PRN PO CONSTIPATION 10/12/20 20:00 Vitamin D (Vitamin D3) 3,000 unit HS PO 10/13/20 21:15 10/26/20 20:43 Losartan Potassium (Cozaar) 50 mg HS PO 10/13/20 21:15 10/19/20 17:41 DC 10/18/20 20:45 Sertraline HCl (Zoloft) 25 mg DAILY PO 10/18/20 09:00 10/21/20 08:59 DC 10/20/20 08:47 Sertraline HCl (Zoloft) 50 mg DAILY PO 10/21/20 09:00 10/26/20 08:28 Losartan Potassium (Cozaar) 50 mg 1X ONCE PO 10/18/20 15:30 10/18/20 15:31 DC 10/18/20 15:20 Losartan Potassium (Cozaar) 100 mg HS PO 10/19/20 18:00 10/19/20 18:38 DC Losartan Potassium (Cozaar) 100 mg HS PO 10/19/20 21:00 10/26/20 20:46 Amlodipine Besylate (Norvasc) 5 mg DAILY PO 10/22/20 09:00 10/26/20 08:28 I have reviewed the current psychotropics carefully including drug interactions. Risk benefit ratio favors no change other than as noted in my dictated progress note. Diagnosis: Problems: (1) Impulse control disorder, unspecified (2) Anxiety disorder, unspecified (3) Dementia, vascular, with depression (4) Dementia, vascular, with delusions (5) Dementia in Alzheimer's disease with depression (6) Dementia in Alzheimer's disease with delusions (7) Dementia of the Alzheimer's type with early onset with behavioral distur bance (8) Major neurocognitive disorder MICHELLE MG MD Oct 26, 2020 22:05
[2020-10-27 05:54] VITALS: BP 157/92
--- NOTE | 2020-10-27 07:11 | PDOC ---
Exam Note: Chucho Note: This note is a late entry for 10/26/2020 covers elements not covered in my initial note. Subjective: The patient was seen individually in the evening of 10/26/2020 with Malgorzata MOTT, discussed and reviewed the chart. She slept 6-3/4 hours previous night. The patient has been somewhat snarky, making fun of other patients, taking her medications floated in pudding. Review of Systems: No CV, , pulmonary, eye system symptoms on review. Reliability poor. Mental Status Exam: The patient is oriented to herself. I met with her in the dayroom. She is pleasant, smiling as I met with her individually. Insight and judgment, recent and remote memory, attention and concentration fund of peter carlisle is poor consistent with her diagnoses. Laboratory Data: Reviewed. Impression: Major neurocognitive disorder Alzheimer vascular with delusion, depression, behavioral disturbance. Anxiety disorder unspecified. Impulse control disorder unspecified. Plan: No change from initial note. Assessment: Vital Signs/I&O: Vital Signs Date Time Temp Pulse Resp B/P (MAP) Pulse Ox O2 Delivery O2 Flow Rate FiO2 10/27/20 05:54 98.2 81 18 157/92 (113) 97 Room Air I & O 10/26/20 10/26/20 10/27/20 15:00 23:00 07:00 Intake Total 480 ml 440 ml Balance 480 ml 440 ml Current Medications: Meds: Current Medications Medications (Trade) Dose Ordered Sig/Wali Route PRN Reason Start Time Stop Time Status Last Admin Dose Admin Acetaminophen (Tylenol) 650 mg PRN Q6HRS PRN PO MILD PAIN / TEMP > 100.3'F 10/12/20 20:00 Multi-Ingredient Ointment (Analgesic [place]) 1 cynthia PRN QID PRN TP MUSCLE PAIN 10/12/20 20:00 Al Hydroxide/Mg Hydroxide (Mylanta Plus Xs) 15 ml PRN AFTMEALHC PRN PO DYSPEPSIA 10/12/20 20:00 Magnesium Hydroxide (Milk Of Magnesia) 2,400 mg PRN QHS PRN PO CONSTIPATION 10/12/20 20:00 Vitamin D (Vitamin D3) 3,000 unit HS PO 10/13/20 21:15 10/26/20 20:43 Losartan Potassium (Cozaar) 50 mg HS PO 10/13/20 21:15 10/19/20 17:41 DC 10/18/20 20:45 Sertraline HCl (Zoloft) 25 mg DAILY PO 10/18/20 09:00 10/21/20 08:59 DC 10/20/20 08:47 Sertraline HCl (Zoloft) 50 mg DAILY PO 10/21/20 09:00 10/26/20 08:28 Losartan Potassium (Cozaar) 50 mg 1X ONCE PO 10/18/20 15:30 10/18/20 15:31 DC 10/18/20 15:20 Losartan Potassium (Cozaar) 100 mg HS PO 10/19/20 18:00 10/19/20 18:38 DC Losartan Potassium (Cozaar) 100 mg HS PO 10/19/20 21:00 10/26/20 20:46 Amlodipine Besylate (Norvasc) 5 mg DAILY PO 10/22/20 09:00 10/26/20 08:28 I have reviewed the current psychotropics carefully including drug interactions. Risk benefit ratio favors no change other than as noted in my dictated progress note. Diagnosis: Problems: (1) Impulse control disorder, unspecified (2) Anxiety disorder, unspecified (3) Dementia, vascular, with depression (4) Dementia, vascular, with delusions (5) Dementia in Alzheimer's disease with depression (6) Dementia in Alzheimer's disease with delusions (7) Dementia of the Alzheimer's type with early onset with behavioral disturbance (8) Major neurocognitive disorder MICHELLE MG MD Oct 27, 2020 07:11
[2020-10-27] MEDS: amLODIPine BESYLATE 5 MG TABLET PO SCH (09:00)
[2020-10-27] MEDS: SERTRALINE 50 MG TABLET. PO SCH (10:08)
--- NOTE | 2020-10-27 10:23 | NUR ---
Pt remains confused and disorganized. She is compliant with whole medications with verbal encouragement. She is absent of SI/HI/VH/AH/pain. She has interacted mostly with female patients and has not been observed engaging in fraternizing behaviors with male patients so far this shift. Plan of care continues, will pass to next shift.
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
--- NOTE | 2020-10-27 12:05 | NUR ---
Contacted pt's pharmacy ([facility], ) and gave phone orders of pt's medications to continue after d/c to Pharmacist Gregoria over the phone for daughter to machine operator picker. Addendum: 10/27/20 at 1214 by MICHELLE HERNANDEZ RN Addendum: gave phone orders from med reconciliation per Dr Garcia
[2020-10-27 15:41] VITALS: BP 138/74
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
[2020-10-27] MEDS: CHOLECALCIFEROL (VITAMIN D3) 1,000 UNIT TABLET PO SCH (20:34)
[2020-10-27] MEDS: LOSARTAN 50 MG TABLET. PO SCH (20:34)
--- NOTE | 2020-10-27 21:54 | PDOC ---
Exam Note: Chucho Note: Please also refer to the separate dictated note~for this date of service dictated separately.~Patient seen individually. Discussed the patient with Nursing staff reviewed the chart.~Reviewed interim history and current functioning. Reviewed vital signs,~Labs/ Radiology~and current medications noted below. Continue current treatment with the changes noted in the dictated addendum note Assessment: Vital Signs/I&O: Vital Signs Date Time Temp Pulse Resp B/P (MAP) Pulse Ox O2 Delivery O2 Flow Rate FiO2 10/27/20 20:34 78 138/74 10/27/20 15:41 98.4 16 95 10/27/20 05:54 Room Air I & O 10/26/20 10/26/20 10/27/20 15:00 23:00 07:00 Intake Total 480 ml 440 ml Balance 480 ml 440 ml Current Medications: Meds: Current Medications Medications (Trade) Dose Ordered Sig/Wali Route PRN Reason Start Time Stop Time Status Last Admin Dose Admin Acetaminophen (Tylenol) 650 mg PRN Q6HRS PRN PO MILD PAIN / TEMP > 100.3'F 10/12/20 20:00 Multi-Ingredient Ointment (Analgesic [place]) 1 cynthia PRN QID PRN TP MUSCLE PAIN 10/12/20 20:00 Al Hydroxide/Mg Hydroxide (Mylanta Plus Xs) 15 ml PRN AFTMEALHC PRN PO DYSPEPSIA 10/12/20 20:00 Magnesium Hydroxide (Milk Of Magnesia) 2,400 mg PRN QHS PRN PO CONSTIPATION 10/12/20 20:00 Vitamin D (Vitamin D3) 3,000 unit HS PO 10/13/20 21:15 10/27/20 20:34 Losartan Potassium (Cozaar) 50 mg HS PO 10/13/20 21:15 10/19/20 17:41 DC 10/18/20 20:45 Sertraline HCl (Zoloft) 25 mg DAILY PO 10/18/20 09:00 10/21/20 08:59 DC 10/20/20 08:47 Sertraline HCl (Zoloft) 50 mg DAILY PO 10/21/20 09:00 10/27/20 10:08 Losartan Potassium (Cozaar) 50 mg 1X ONCE PO 10/18/20 15:30 10/18/20 15:31 DC 10/18/20 15:20 Losartan Potassium (Cozaar) 100 mg HS PO 10/19/20 18:00 10/19/20 18:38 DC Losartan Potassium (Cozaar) 100 mg HS PO 10/19/20 21:00 10/27/20 20:34 Amlodipine Besylate (Norvasc) 5 mg DAILY PO 10/22/20 09:00 10/27/20 09:00 I have reviewed the current psychotropics carefully including drug interactions. Risk benefit ratio favors no change other than as noted in my dictated progress note. Diagnosis: Problems: (1) Impulse control disorder, unspecified (2) Anxiety disorder, unspecified (3) Dementia, vascular, with depression (4) Dementia, vascular, with delusions (5) Dementia in Alzheimer's disease with depression (6) Dementia in Alzheimer's disease with delusions (7) Dementia of the Alzheimer's type with early onset with behavioral disturbance (8) Major neurocognitive disorder MICHELLE MG MD Oct 27, 2020 21:54
[2020-10-28] MEDS ORDERED: ACET325T21 PO (00:04)
[2020-10-28] MEDS ORDERED: MAG30ORA2 PO (00:06)
[2020-10-28] MEDS ORDERED: MAGN24003 PO (00:07)
[2020-10-28] MEDS ORDERED: METH114C3 TP (00:08)
[2020-10-28] MEDS ORDERED: SERT50TA PO (00:09)
[2020-10-28] MEDS ORDERED: AMLO-186 PO (00:10)
--- NOTE | 2020-10-28 02:05 | NUR ---
Last evening pt was in the day room and was social with peers. At times she would hold hands with male peers then resist staffs attempts to separate them and would become verbally aggressive and curse at staff. She would quickly forget her anger with staff and again be cooperative. Since going to bed she has been sleeping.
[2020-10-28 05:51] VITALS: BP 156/82
--- NOTE | 2020-10-28 07:05 | PDOC ---
Exam Note: Chucho Note: This note is a late entry for 10/27/2020 covers elements not covered in my initial note. Subjective: The patient was reviewed in the morning of 10/27/2020 for a treatment team meeting with Amada Chatterjee, Gwendolyn Gray and Ira (oncology social work), Landy, activity therapy and Rosario MOTT, discussed and reviewed the chart. She slept 6-3/4 hours previous night. The patients daughter Shameka was on the conference call as well. Review of Systems: No CV, , pulmonary, eye system symptoms on review. Reliability poor. She is still confused, forgetful, less anxious, less paranoid. Mental Status Exam: The patient is oriented to herself. I met with her in the dayroom. Insight and judgment, recent and remote memory, attention and concentration fund of knowledge is poor consistent with her diagnoses. Laboratory Data: Reviewed. Impression: Major neurocognitive disorder Alzheimer vascular with delusion, depression, behavioral disturbance. Anxiety disorder unspecified. Impulse control disorder unspecified. Plan: No change from initial note. Assessment: Vital Signs/I&O: Vital Signs Date Time Temp Pulse Resp B/P (MAP) Pulse Ox O2 Delivery O2 Flow Rate FiO2 10/28/20 05:51 98.1 84 16 156/82 (106) 96 Room Air I & O 10/27/20 10/27/20 10/28/20 15:00 23:00 07:00 Intake Total 840 ml 120 ml 240 ml Balance 840 ml 120 ml 240 ml Current Medications: Meds: Current Medications Medications (Trade) Dose Ordered Sig/Wali Route PRN Reason Start Time Stop Time Status Last Admin Dose Admin Acetaminophen (Tylenol) 650 mg PRN Q6HRS PRN PO MILD PAIN / TEMP > 100.3'F 10/12/20 20:00 Multi-Ingredient Ointment (Analgesic [place]) 1 cynthia PRN QID PRN TP MUSCLE PAIN 10/12/20 20:00 Al Hydroxide/Mg Hydroxide (Mylanta Plus Xs) 15 ml PRN AFTMEALHC PRN PO DYSPEPSIA 10/12/20 20:00 Magnesium Hydroxide (Milk Of Magnesia) 2,400 mg PRN QHS PRN PO CONSTIPATION 10/12/20 20:00 Vitamin D (Vitamin D3) 3,000 unit HS PO 10/13/20 21:15 10/27/20 20:34 Losartan Potassium (Cozaar) 50 mg HS PO 10/13/20 21:15 10/19/20 17:41 DC 10/18/20 20:45 Sertraline HCl (Zoloft) 25 mg DAILY PO 10/18/20 09:00 10/21/20 08:59 DC 10/20/20 08:47 Sertraline HCl (Zoloft) 50 mg DAILY PO 10/21/20 09:00 10/27/20 10:08 Losartan Potassium (Cozaar) 50 mg 1X ONCE PO 10/18/20 15:30 10/18/20 15:31 DC 10/18/20 15:20 Losartan Potassium (Cozaar) 100 mg HS PO 10/19/20 18:00 10/19/20 18:38 DC Losartan Potassium (Cozaar) 100 mg HS PO 10/19/20 21:00 10/27/20 20:34 Amlodipine Besylate (Norvasc) 5 mg DAILY PO 10/22/20 09:00 10/27/20 09:00 I have reviewed the current psychotropics carefully including drug interactions. Risk benefit ratio favors no change other than as noted in my dictated progress note. Diagnosis: Problems: (1) Impulse control disorder, unspecified (2) Anxiety disorder, unspecified (3) Dementia, vascular, with depression (4) Dementia, vascular, with delusions (5) Dementia in Alzheimer's disease with depression (6) Dementia in Alzheimer's disease with delusions (7) Dementia of the Alzheimer's type with early onset with behavioral disturbance (8) Major neurocognitive disorder MICHELLE MG MD Oct 28, 2020 07:05
[2020-10-28 09:00] VITALS: BP 156/82
[2020-10-28] MEDS: SERTRALINE 50 MG TABLET. PO SCH (09:00)
[2020-10-28] MEDS: amLODIPine BESYLATE 5 MG TABLET PO SCH (09:00)
--- NOTE | 2020-10-28 09:24 | NUR ---
Pt A&O to self only, confused and disorganized. She is compliant with whole medications with verbal encouragement. She is absent of SI/HI/VH/AH/pain. Plan of care continues, preparing for d/c.
--- NOTE | 2020-10-28 10:22 | NUR ---
Transition Record was faxed to follow-up provider with the following elements: Reason for admission, procedures, tests, principal diagnosis, pending studies, patient instructions, 10/12 contact information for unit, phone number to obtain pending test results, plan for follow-up care, physician follow-up, advanced directive information, and medication list with dose, duration and instructions. This information was included in the following documents: History and physical, lab results, study results, progress notes, social work planning form, DC instruction form, patient visit summary, and medication reconciliation form. Date & time record faxed:10/28/2031 Record faxed to: [employer] [facility] (fax [phone]) Record discussed with/ report given to: [facility] (phone [phone])
--- NOTE | 2020-10-28 22:06 | PDOC ---
Exam Note: Chucho Note: Please also refer to the separate dictated note~for this date of service dictated separately.~Patient seen individually. Discussed the patient with Nursing staff reviewed the chart.~Reviewed interim history and current functioning. Reviewed vital signs,~Labs/ Radiology~and current medications noted below. Continue current treatment with the changes noted in the dictated addendum note Assessment: Vital Signs/I&O: Vital Signs Date Time Temp Pulse Resp B/P (MAP) Pulse Ox O2 Delivery O2 Flow Rate FiO2 10/28/20 09:00 84 156/82 10/28/20 05:51 98.1 16 96 Room Air I & O 10/27/20 10/27/20 10/28/20 15:00 23:00 07:00 Intake Total 840 ml 120 ml 240 ml Balance 840 ml 120 ml 240 ml Current Medications: Meds: Current Medications Medications (Trade) Dose Ordered Sig/Wali Route PRN Reason Start Time Stop Time Status Last Admin Dose Admin Acetaminophen (Tylenol) 650 mg PRN Q6HRS PRN PO MILD PAIN / TEMP > 100.3'F 10/12/20 20:00 10/28/20 10:25 DC Multi-Ingredient Ointment (Analgesic [place]) 1 cynthia PRN QID PRN TP MUSCLE PAIN 10/12/20 20:00 10/28/20 10:25 DC Al Hydroxide/Mg Hydroxide (Mylanta Plus Xs) 15 ml PRN AFTMEALHC PRN PO DYSPEPSIA 10/12/20 20:00 10/28/20 10:25 DC Magnesium Hydroxide (Milk Of Magnesia) 2,400 mg PRN QHS PRN PO CONSTIPATION 10/12/20 20:00 10/28/20 10:25 DC Vitamin D (Vitamin D3) 3,000 unit HS PO 10/13/20 21:15 10/28/20 10:25 DC 10/27/20 20:34 Losartan Potassium (Cozaar) 50 mg HS PO 10/13/20 21:15 10/19/20 17:41 DC 10/18/20 20:45 Sertraline HCl (Zoloft) 25 mg DAILY PO 10/18/20 09:00 10/21/20 08:59 DC 10/20/20 08:47 Sertraline HCl (Zoloft) 50 mg DAILY PO 10/21/20 09:00 10/28/20 10:25 DC 10/28/20 09:00 Losartan Potassium (Cozaar) 50 mg 1X ONCE PO 10/18/20 15:30 10/18/20 15:31 DC 10/18/20 15:20 Losartan Potassium (Cozaar) 100 mg HS PO 10/19/20 18:00 10/19/20 18:38 DC Losartan Potassium (Cozaar) 100 mg HS PO 10/19/20 21:00 10/28/20 10:25 DC 10/27/20 20:34 Amlodipine Besylate (Norvasc) 5 mg DAILY PO 10/22/20 09:00 10/28/20 10:25 DC 10/28/20 09:00 I have reviewed the current psychotropics carefully including drug interactions. Risk benefit ratio favors no change other than as noted in my dictated progress note. Diagnosis: Problems: (1) Impulse control disorder, unspecified (2) Anxiety disorder, unspecified (3) Dementia, vascular, with depression (4) Dementia, vascular, with delusions (5) Dementia in Alzheimer's disease with depression (6) Dementia in Alzheimer's disease with delusions (7) Dementia of the Alzheimer's type with early onset with behavioral disturbance (8) Major neurocognitive disorder MICHELLE MG MD Oct 28, 2020 22:06
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
== END 2020-10-28 10:10 | DRG 57 ==
LOC: ER 18:30 → GEROPSY 20:10
PROVIDERS: ADMIT Psychiatry & Neurology Psychiatry; ATTEND Psychiatry & Neurology Psychiatry
DX: G30.9 Alzheimer's disease, unspecified (principal); F01.51 Vascular dementia, unspecified severity, with behavioral disturbance; F02.81 Dementia in other diseases classified elsewhere, unspecified severity, with behavioral disturbance; Z66 Do not resuscitate; I10 Essential (primary) hypertension; F32.9 Major depressive disorder, single episode, unspecified; F41.9 Anxiety disorder, unspecified; F63.9 Impulse disorder, unspecified; Z79.899 Other long term (current) drug therapy
CPT/HCPCS: 36415; 80053; 80061; 81001; 82306; 82607; 83036; 83540; 83550; 83735; 84436; 84443; 84480; 84484; 85007; 85025; 85027; 85379; 86592; 93005; 97535; 99285-25